=== PATIENT | male | born 1955 | race Caucasian/White ===

== ENCOUNTER 2024-07-29 08:58 | Inpatient (IN) ==
[2024-07-29 10:32] LABS: BUN Creatinine Ratio 17.5 (10-20); Calcium 9.7 mg/dl (8.6-10.3); Creatinine Clr Calc Pharmacy 28.3 ml/min; Potassium 4.8 mmol/L (3.5-5.1)
[2024-07-29 10:36] LABS: Acanthocytes 1+; Basophils # (auto) 0.05 K/uL (0.00-0.20); Basophils % (auto) 0.9 %; Eosinophils # (auto) 0.07 K/uL (0.00-0.50); Eosinophils % (auto) 1.2 %; Hematocrit (blood only) 36.4 % (42.0-52.0); Hemoglobin 12.7 g/dl (14.0-18.0); Immature Granulocytes # (auto) 0.02 K/uL (0.01-0.20); Immature Granulocytes % (auto) 0.3 %; Lymphocytes # (auto) 1.06 K/uL (1.20-3.40); Lymphocytes % (auto) 18.2 %; Mean Corpuscular Hemoglobin 31.5 pg (25.0-34.0); Mean Corpuscular Hgb Conc 34.9 g/dL (32.0-36.0); Mean Corpuscular Volume 90.3 fL (80.0-100.0); Mean Platelet Volume 9.7 fL (9.4-12.4); Monocytes # (auto) 0.44 K/uL (0.11-0.59); Monocytes % (auto) 7.5 %; Neutrophils % (auto) 71.9 %; Polychromasia 1+; RDW Coefficient of Variation 11.6 % (11.5-14.5); RDW Standard Deviation 37.8 fL (36.4-46.3); Red Blood Count 4.03 M/uL (4.70-6.10); White Blood Count 5.84 K/ul (4.8-10.8)
--- NOTE | 2024-07-29 10:39 | XRay Report ---
XR toe(s) LT min 2V HISTORY: 68 years-old Male Great toe infection COMPARISON: None TECHNIQUE: 2 views of the left great toe FINDINGS: There is extension of the metatarsal phalangeal and flexion of the interphalangeal joints seen within the second through fifth digits. Mild soft tissue swelling of the forefoot with arterial calcificati ons. No acute fracture, dislocation or osseous erosion. IMPRESSION: Soft tissue swelling without acute osseous abnormality. ACT 112: Negative or not required by law. The above report was generated using voice recognition software. It may contain grammatical, syntax o r spelling errors. Electronically signed by: Joseph Young M.D. 07/29/2024 10:38 AM
--- NOTE | 2024-07-29 10:51 | XRay Report ---
XR toe(s) RT min 2V CLINICAL HISTORY: Great toe infection COMPARISON: None FINDINGS: Alignment of the right great toe is anatomic. No bony erosion is present. There is no frac ture. Soft tissue swelling is noted. There are no radiopaque foreign bodies. IMPRESSION: Right great toe soft tissue swelling. No evidence for acute osteomyelitis. No radiopaque foreign bodies. ACT 112: Negative or not required by law. Electronically signed by: Germán Martinez M.D. 07/29/2024 10:49 AM
--- NOTE | 2024-07-29 11:43 | History & Physical Report ---
Date of Service July 29, 2024 Assessment & Plan (1) Cellulitis of toe of left foot: (2) Cellulitis of toe of right foot: (3) DM II (diabetes mellitus, type II), controlled: (4) Hypertension: (5) Hyperlipidemia: (6) GERD (gastroesophageal reflux disease): Plan Cellulitis right toe Cellulitis left toe -Admit patient to [facility] -X-ray reviewed as above showing bilateral great toe soft tissue swelling, no signs of osteomyelitis -Check MRSA swab, check blood culture x 2, continue IV Zosyn and daptomycin(for renal function), can DC dapto if MRSA swab is negative -Wound consult, potential for needs for surgical debridement of left great toe eschar-Will require follow-up once back in long term system -Consider podiatry consultation -Orthotics consult for offloading shoe, appears that current footwear is further affecting the great toe, does not fit him correctly Possible RONNY - Cr. elevated at 2.75, unknown baseline, monitor with am labs - Avoid nephrotoxins and renally reduce medications. DM type II -Check A1c -ISS with Accu-Cheks ACHS -Holding home medications HTN HLD -Continue home antihypertensives and statin therapy Constipation - Cont daily miralax and stool softener Urinary Retention - Bladder scan prn, can consider adding flomax for the patient DVT ppx: teds, scds Lines: PIV x 1 FEN/GI: HH/DM diet CODE: Full code Dispo: From [facility], likely to remain in the hospital x 1-2 days A total of 75 minutes were spent with greater than 50% of that time face to face with the patient, personally reviewing all current laboratories, imaging studies, past medication reconciliation, outpatient chart review, and discussion with specialists to collaborate care for the patient with attending. Please see attending documentation for corrections and/or additions. History of Present Illness Chief Complaint: Toe eschar Primary Care Provider: [facility] This is a 68-year-old male with PMHx of DM type II, HTN, HLD, GERD, depression who presents to the hospital from [facility] as an unassigned admission to our team with complaints of left toe eschar, as well as right toe erythema. Patient states that his toes look normal up until approximately 3 days ago. He had been followed by the [facility] [place] [facility], started on oral Bactrim and took it for 3 days in a row without any improvement.He denies any fever, reports that he is always chilled, or acute pain in his bilateral great toes. He states that he does have history of neuropathy, that it is in the bottoms of his feet bilaterally. Patient states that he was only recently started on additional antihyperglycemic medication, metformin, about 1 week ago. He was evaluated in the [facility] this morning and reportedly physician there wanted further evaluation for podiatry versus surgical debridement here at the hospital. Patient is found to have an elevated creatinine of 2.75/BUN 48 on admission, WBC is negligible at 5.84, afebrile. Imaging great toe x-ray bilaterally negative for osteomyelitis but does show soft tissue swelling. Allergies Allergy/AdvReac Type Severity Reaction Status Date / Time insulin regular Allergy Unknown Unknown Verified 05/19/23 13:46 Home Medications Medication Instructions Recorded Confirmed Type atorvastatin 10 mg tablet 10 mg PO HS 03/27/23 07/29/24 History glipizide 5 mg tablet 5 mg PO BID 03/27/23 07/29/24 History lisinopril 2.5 mg tablet 2.5 mg PO QAM 03/27/23 07/29/24 History sitagliptin phosphate 100 mg 100 mg PO QAM 03/27/23 07/29/24 History tablet (Januvia) atorvastatin 10 mg tablet 10 mg PO HS 07/29/24 07/29/24 History lactulose 10 gram/15 mL oral 15 ml PO DAILY PRN Constipation 07/29/24 07/29/24 History solution loratadine 10 mg tablet 10 mg PO DAILY 07/29/24 07/29/24 History metformin 500 mg tablet 500 mg PO BID 07/29/24 07/29/24 History polyethylene glycol 3350 17 gram 17 g PO DAILY PRN Constipation 07/29/24 07/29/24 History oral powder packet (Miralax) sulfamethoxazole 800 1 tab PO BID 07/29/24 07/29/24 History mg-trimethoprim 160 mg tablet (Bactrim DS) Past Med/Surg History Problem List (Updated 07/29/24 @ 11:41 by Nereida Edmondson PA-C) DM II (diabetes mellitus, type II), controlled Cellulitis of toe of right foot Cellulitis of toe of left foot Medical History Constipation Depression, unspecified Diabetes GERD (gastroesophageal reflux disease) Hyperlipidemia Hypertension [place] History [place] [facility] [place] History Other Family history unobtainable Social History Smoking Status: Never smoker Preferred Language: [place] Islander Communication Ability: Effective Juke Box Mechanic Required: No Beliefs That Will Affect Care: None Current Living Situation: Other Current Living Situation Comment: incarcerated at [facility] Feels Safe at Home: Yes Review of Systems Review of Systems: Constitutional: No fever, sweats, + chills Eyes: No diplopia, no worsening or blurred vision ENT: normal hearing, no trouble swallowing Respiratory: No cough, sputum, dyspnea at rest or on exertion Cardiovascular: No chest pain, tightness or palpitations Abdomen: No pain, nausea, vomiting, diarrhea or constipation Musculoskeletal: No joint pain, calf pain, swelling, + toes as per HPI Neurologic: No weakness, numbness/tingling, or balance problems Psychiatric: No anxiety or depression Skin: No rash or itch, left great toe with blackened eschar over medial aspect of great toe, erythema and edema of the right great toe worse along the medial aspect Physical Exam Physical Exam: General: awake, alert, no apparent distress, elderly white male, thin, BMI 21 Head: Normocephalic, atraumatic ENT: PERRL, EOMI, no pharyngeal exudate, mucous membranes moist Chest: Clear to auscultation, on room air, no adventitious breath sounds Cardiac: Regular rate and rhythm, no murmur, no JVD, normal peripheral pulses, good capillary refill Abdominal: NABS x 4 quadrants, soft, nondistended, nontender to palpation, no rebound or guarding Extremities: Left great toe with black eschar medial aspect, minimal surrounding erythema does not extend past the base of the toe, right great toe erythema, edema, no eschar, minimally open area of skin, erythema does not extend past the base of the toe, no edema in the foot. Otherwise normal inspection, no peripheral edema or erythema, calfs nontender to palpation Psych: Normal mood and affect Neuro: AAO x 3, strength intact bilaterally and rated 5/5, no motor deficits, speech is clear, no peripheral sensory deficits Results & Data Results & Data Vital Signs (Past 12 Hours) Vital Signs Temp Pulse Resp BP BP Pulse Ox O2 Del Method 07/29/24 11:20 16 111/42 L 96 07/29/24 09:04 36.5 C 70 20 123/76 96 Room Air Laboratory Results 07/29/24 07/29/24 09:42 09:34 WBC 5.84 RBC 4.03 L Hgb 12.7 L Hct 36.4 L MCV 90.3 MCH 31.5 MCHC 34.9 RDW Std Deviation 37.8 RDW Coeff of Sparkle 11.6 Plt Count MPV 9.7 Immature Gran % (Auto) 0.3 Neut % (Auto) 71.9 Lymph % (Auto) 18.2 [place] % (Auto) 7.5 Eos % (Auto) 1.2 Baso % (Auto) 0.9 Neut # (Auto) 4.20 Lymph # (Auto) 1.06 L [place] # (Auto) 0.44 Eos # (Auto) 0.07 Baso # (Auto) 0.05 Immature Gran # (Auto) 0.02 Polychromasia 1+ Acanthocytes (Spur) 1+ Sodium 139 Potassium 4.8 Chloride 106 Carbon Dioxide 25 Anion Gap 8 BUN 48 H Creatinine 2.75 H Est Cr Clr Drug Dosing 28.3 eGFR 24.66 BUN/Creatinine Ratio 17.5 Glucose 94 POC Glucose 85 Calcium 9.7 Diagnostic Findings Toe X-Ray 07/29/24 09:55 XR toe(s) LT min 2V HISTORY: 68 years-old Male Great toe infection COMPARISON: None TECHNIQUE: 2 views of the left great toe FINDINGS: There is extension of the metatarsal phalangeal and flexion of the interphalangeal joints seen within the second through fifth digits. Mild soft tissue swelling of the forefoot with arterial calcifications. No acute fracture, dislocation or osseous erosion. IMPRESSION: Soft tissue swelling without acute osseous abnormality. ACT 112: Negative or not required by law. The above report was generated using voice recognition software. It may contain grammatical, syntax or spelling errors. Electronically signed by: Joseph Young M.D. 07/29/2024 10:38 AM Toe X-Ray 07/29/24 09:55 XR toe(s) RT min 2V CLINICAL HISTORY: Great toe infection COMPARISON: None FINDINGS: Alignment of the right great toe is anatomic. No bony erosion is present. There is no fracture. Soft tissue swelling is noted. There are no radiopaque foreign bodies. IMPRESSION: Right great toe soft tissue swelling. No evidence for acute osteomyelitis. No radiopaque foreign bodies. ACT 112: Negative or not required by law. Electronically signed by: Germán Martinez M.D. 07/29/2024 10:49 AM Code Status & VTE Plan Code Status Full code Supervising Physician Co-Signing Physician Notes 68-year-old male with PMH of T2DM, HTN, HLD, GERD, depression presented to the ED from [facility] with complaint of left discharge as well as right toe erythema. Patient reports noticing wound in his great toes in the last 1 to 2 weeks, denies trauma to the area, reports sensation intact, has intact dorsalis pedis pulses bilaterally on exam. Patient reports skin falling off in the left great toe and drainage of liquid/bloody discharge from the right great toe. Denies purulent discharge. Denies fever. Denies sore throat/cough/chest pain. Reports feeling weak. Labs and imaging reviewed. Fairly WNL. X-ray bilateral great toe: No evidence of acute osteomyelitis. Soft tissue swelling noted. Bilateral great toe cellulitis: Continue with Zosyn plus dapto due to renal fxn, podiatry consult, wound care consult. Cr 2.75, unknown baseline, follow labs in AM. No data in [facility] chart review. on Exam: GENERAL: Alert and oriented x3. NAD, on RA. HEENT: No pallor, no icterus. Pupils equal, round and reactive to light. Oral mucosa moist. NECK: No JVD, no neck masses. HEART: S1 and S2 heard. Regular rate and rhythm. No murmur, no gallop. RESPIRATORY SYSTEM: Normal AP diameter. No accessory muscle use. No wheezing, no crackles. ABDOMEN: Soft, bowel sounds present, nontender, no distention. CENTRAL NERVOUS SYSTEM: No facial droop. Speech is clear. Obeys simple commands. Moves extremities. EXTREMITIES: No edema, no erythema seen. Rt great toe: erythema, non tender, fluctuation +, no purulent drainage, erythema tracking to medial margin of forefoot Lt great toe: eschar +, minimal erythema tracking to medial margin of great toe base, non tender. I have seen and examined the patient and have discussed the case with the provider above. I agree with the assessment and plan as stated. Time spent: 30 min
[2024-07-29] MEDS: PIPERACILLIN/TAZOBACTAM 4.5 GM/100 ML BAG IV ONE (11:44)
--- NOTE | 2024-07-29 13:33 | Emergency Department Note ---
Impression & Plan Cellulitis of toe of right foot, DM II (diabetes mellitus, type II), controlled, Cellulitis of toe of left foot, Acute kidney injury ED Provider Note NAME: JENNIFER [id number] THOMAS AGE: 68 SEX: M : 1955 ARRIVES VIA: Walk-In INFORMANT: Patient, ED PROVIDER(S): Yousuf William MD CHIEF COMPLAINT: Bilateral toe infection HPI: This is a 68-year-old male presenting for bilateral toe infection. Patient notes that over the past few days to weeks he has had increasing pain to bilateral toes. He notes a black eschar to the left toe which is present physician said it was "likely necrosis ". Right toe is still painful but has less visible wounds as per patient. He is a diabetic. Otherwise no shortness of breath, fever, chills or pain to the Baresel extremity. ROS: See above HPI for pertinent positives & negatives. A total of 10 systems reviewed and were otherwise negative. PAST MEDICAL HISTORY: See Below PAST SURGICAL HISTORY: See Below FAMILY HISTORY: See Below SOCIAL HISTORY: See Below HOME MEDICATIONS: See Below ALLERGIES: See Below VITALS: See Below PHYSICAL EXAMINATION: General: resting comfortably in no acute distress Head: Normocephalic and atraumatic Eyes: Normal inspection, extraocular muscles intact Ear, nose, throat: Normal external exam Neck: Normal range of motion Respiratory: speaking in full sentences, symmetric chest rise, no respiratory distress Cardiovascular: Regular rate/rhythm, right great toe shows erythema/edema, left great toe shows medial black eschar Neuro: The patient awake and alert, appropriately conversive, symmetric faces, no focal deficits MEDICAL DECISION MAKING: This is a 68-year-old male presenting for bilateral toe infection. Due to black eschar, will get x-ray of bilateral toes. Do have suspicion for cellulitis bilaterally. Low concern for acute osteomyelitis based on wounds. Do have worry about needing wound care on the left great toe due to the black eschar. Will start on IV Zosyn. Patient has been on oral Bactrim without relief of symptoms for the past 3 days. -X-rays of bilateral toes reveal no osseous fracture or dislocation, there is soft tissue swelling bilaterally, as Independently interpreted by me -Patient's blood work is abnormal showing a creatinine of 2.75, clear his previous baseline -Discussed care with Violeta, on-call for [facility] hospitalist service Differential diagnosis: Osteomyelitis, cellulitis, necrotic wound ER treatment provided: See below Independent History obtained from: Intermediate guards Diagnostics interpreted by me: ECG: None Cardiac Monitoring: An order was placed for continuous cardiac monitoring. The monitor shows a rate of 67 with sinus rhythm. Laboratory studies: As stated above and show below. Imaging studies: See below. Past Med/Surg History Problem List (Updated 07/29/24 @ 14:19 by Yousuf William MD) Acute kidney injury (Acute) DM II (diabetes mellitus, type II), controlled (Acute) Cellulitis of toe of right foot (Acute) Cellulitis of toe of left foot (Acute) Medical History Constipation Depression, unspecified Diabetes GERD (gastroesophageal reflux disease) Hyperlipidemia Hypertension Surgical History History of left cataract extraction 03/30/23 @ [facility] [place] Family History Other Family history unobtainable Social History Smoking Status: Never smoker Preferred Language: Hebrew Communication Ability: Effective Claims Account Manager Required: No Beliefs That Will Affect Care: None Current Living Situation: Other Current Living Situation Comment: incarcerated at [facility] Feels Safe at Home: Yes Allergies Allergies Allergy/AdvReac Type Severity Reaction Status Date / Time insulin regular Allergy Unknown Unknown Verified 05/19/23 13:46 Home Meds Home Medications Medication Instructions Recorded Confirmed atorvastatin 10 mg tablet 10 mg PO HS 03/27/23 07/29/24 glipizide 5 mg tablet 5 mg PO BID 03/27/23 07/29/24 lisinopril 2.5 mg tablet 2.5 mg PO QAM 03/27/23 07/29/24 sitagliptin phosphate 100 mg 100 mg PO QAM 03/27/23 07/29/24 tablet (Januvia) atorvastatin 10 mg tablet 10 mg PO HS 07/29/24 07/29/24 lactulose 10 gram/15 mL oral 15 ml PO DAILY PRN Constipation 07/29/24 07/29/24 solution loratadine 10 mg tablet 10 mg PO DAILY 07/29/24 07/29/24 metformin 500 mg tablet 500 mg PO BID 07/29/24 07/29/24 polyethylene glycol 3350 17 gram 17 g PO DAILY PRN Constipation 07/29/24 07/29/24 oral powder packet (Miralax) sulfamethoxazole 800 1 tab PO BID 07/29/24 07/29/24 mg-trimethoprim 160 mg tablet (Bactrim DS) Results & Data (ED) Vital Signs Vital Signs - 24 hr 07/29/24 09:04 07/29/24 11:20 Temperature 36.5 C Temperature Source Temporal Artery Scan Pulse Rate 70 Pulse Rhythm Regular Pulse Rhythm [Radial] Regular Pulse Strength Normal Pulse Strength [Radial] Normal Respiratory Rate 20 16 Respiratory Effort / Characteristics Non-Labored Spontaneous Non-Labored Respiratory Depth Normal Normal Respiratory Pattern Regular Regular Blood Pressure 123/76 Blood Pressure [Right Arm] 111/42 L Blood Pressure Mean 91 Blood Pressure Mean [Right Arm] 65 Blood Pressure Position Sitting Blood Pressure Position [Right Arm] Sitting Pulse Oximetry 96 96 Oxygen Delivery Method Room Air Sepsis Recent Fever Within 48 Hours No Sepsis New/Unexplained Change in Mental Status No Sepsis Action Taken by Nursing No Action Required Laboratory Data 07/29/24 09:34 07/29/24 09:34 Lab Results 07/29/24 07/29/24 07/29/24 Range/Units 09:34 09:42 11:32 WBC 5.84 (4.8-10.8) K/ul RBC 4.03 L (4.70-6.10) M/uL Hgb 12.7 L (14.0-18.0) g/dl Hct 36.4 L (42.0-52.0) % MCV 90.3 (80.0-100.0) fL MCH 31.5 (25.0-34.0) pg MCHC 34.9 (32.0-36.0) g/dL RDW Std Deviation 37.8 (36.4-46.3) fL RDW Coeff of Saprk[place] 11.6 (11.5-14.5) % Plt Count (130-400) K/uL MPV 9.7 (9.4-12.4) fL Immature Gran % (Auto) 0.3 % Neut % (Auto) 71.9 % Lymph % (Auto) 18.2 % [place] % (Auto) 7.5 % Eos % (Auto) 1.2 % Baso % (Auto) 0.9 % Neut # (Auto) 4.20 (1.40-6.50) K/uL Lymph # (Auto) 1.06 L (1.20-3.40) K/uL [place] # (Auto) 0.44 (0.11-0.59) K/uL Eos # (Auto) 0.07 (0.00-0.50) K/uL Baso # (Auto) 0.05 (0.00-0.20) K/uL Immature Gran # (Auto) 0.02 (0.01-0.20) K/uL Polychromasia 1+ Acanthocytes (Spur) 1+ Sodium 139 (136-145) mmol/L Potassium 4.8 (3.5-5.1) mmol/L Chloride 106 (98-107) mmol/L Carbon Dioxide 25 (21-32) mmol/L Anion Gap 8 (3-11) BUN 48 H (6-23) mg/dl Creatinine 2.75 H (0.6-1.4) mg/dl Est Cr Clr Drug Dosing 28.3 ml/min eGFR 24.66 BUN/Creatinine Ratio 17.5 (10-20) Glucose 94 (70-99(Fasting)) mg/dl POC Glucose 85 (70-99) mg/dl Calcium 9.7 (8.6-10.3) mg/dl SARS-CoV-2, RNA, NAAT NEGATIVE (NEGATIVE) Administered Medications Discontinued Medications Piperacillin Sod/Tazobactam Sod (Zosyn) 4.5 gm in 100 mls @ 200 mls/hr IV NOW ONE; Protocol Stop: 07/29/24 12:05 Last Infusion: 07/29/24 13:28 Dose: Infused Documented By: Admin: 07/29/24 11:44 Dose: 200 mls/hr Documented By: [employer] [facility] Data Radiologist's Impression: Toe X-Ray 07/29/24 09:55 XR toe(s) LT min 2V HISTORY: 68 years-old Male Great toe infection COMPARISON: None TECHNIQUE: 2 views of the left great toe FINDINGS: There is extension of the metatarsal phalangeal and flexion of the interphalangeal joints seen within the second through fifth digits. Mild soft tissue swelling of the forefoot with arterial calcifications. No acute fracture, dislocation or osseous erosion. IMPRESSION: Soft tissue swelling without acute osseous abnormality. ACT 112: Negative or not required by law. The above report was generated using voice recognition software. It may contain grammatical, syntax or spelling errors. Electronically signed by: Joseph Young M.D. 07/29/2024 10:38 AM Toe X-Ray 07/29/24 09:55 XR toe(s) RT min 2V CLINICAL HISTORY: Great toe infection COMPARISON: None FINDINGS: Alignment of the right great toe is anatomic. No bony erosion is present. There is no fracture. Soft tissue swelling is noted. There are no radiopaque foreign bodies. IMPRESSION: Right great toe soft tissue swelling. No evidence for acute osteomyelitis. No radiopaque foreign bodies. ACT 112: Negative or not required by law. Electronically signed by: Germán Martinez M.D. 07/29/2024 10:49 AM Discharge Plan Visit Data Chief Complaint: Infection Stated Complaint: BILATERAL GREAT TOE CELLULITIS ED Provider: Yousuf William Discharge Problem: Cellulitis of toe of right foot, DM II (diabetes mellitus, type II), controlled, Cellulitis of toe of left foot, Acute kidney injury
[2024-07-29] MEDS ORDERED: GLUCOSE 40% GEL 15 GM TUBE PO PRN (16:12)
[2024-07-29] MEDS ORDERED: ONDANSETRON INJ 2 MG/ML 2 ML VIAL IV PRN (16:12)
[2024-07-29] MEDS ORDERED: GLUCAGON FOR INJ 1 MG VIAL SQ PRN (16:12)
[2024-07-29] MEDS ORDERED: ACETAMINOPHEN 325 MG TAB PO PRN (16:12)
[2024-07-29] MEDS ORDERED: GLUCOSE 10 TAB/TUBE PO PRN (16:12)
[2024-07-29] MEDS ORDERED: DEXTROSE 50% 50 ML SYRINGE IV PRN (16:12)
[2024-07-29] MEDS: INSULIN ASPART PER UNIT CHARGE SC SCH (17:14)
[2024-07-29] MEDS: DAPTOmycin 300 MG in SYRINGE 0 ML IV SCH (18:06)
[2024-07-30 07:31] LABS: Hematocrit (blood only) 35.1 % (42.0-52.0); Hemoglobin 12.4 g/dl (14.0-18.0); Mean Corpuscular Hemoglobin 31.3 pg (25.0-34.0); Mean Corpuscular Hgb Conc 35.3 g/dL (32.0-36.0); Mean Corpuscular Volume 88.6 fL (80.0-100.0); Mean Platelet Volume 9.3 fL (9.4-12.4); Platelet Count 148 K/uL (130-400); RDW Coefficient of Variation 11.5 % (11.5-14.5); RDW Standard Deviation 36.8 fL (36.4-46.3); Red Blood Count 3.96 M/uL (4.70-6.10); White Blood Count 5.34 K/ul (4.8-10.8)
[2024-07-30 07:34] LABS: Estimated Average Glucose 174 mg/dl; Hemoglobin A1C 7.7 % (4.5-5.6)
[2024-07-30 07:38] LABS: BUN Creatinine Ratio 16.7 (10-20); Calcium 9.1 mg/dl (8.6-10.3); Creatinine Clr Calc Pharmacy 27.4 ml/min; Potassium 4.6 mmol/L (3.5-5.1)
--- NOTE | 2024-07-30 15:10 | Hospitalist Progress Note ---
Date of Service July 30, 2024 Assessment & Plan (1) Cellulitis of toe of left foot: (2) Cellulitis of toe of right foot: (3) DM II (diabetes mellitus, type II), controlled: (4) Hypertension: (5) Hyperlipidemia: (6) GERD (gastroesophageal reflux disease): Plan Cellulitis right toe Cellulitis left toe -X-ray reviewed a thes above showing bilateral great toe soft tissue swelling, no signs of osteomyelitis -Check MRSA swab, check blood culture x 2, continue IV Zosyn and daptomycin(for renal function), can DC dapto if MRSA swab is negative -Wound consult, potential for needs for surgical debridement of left great toe eschar-Will require follow-up once back in correction system -Orthotics consult for offloading shoe, appears that current footwear is further affecting the great toe, does not fit him correctly right great toe wound culture is growing Staph aureus, sensitivities pending -Left great toe wound culture shows pinpoint growth and reintubating MRSA screen has been negative Will consult podiatry and continue current antibiotic and wait for sensitivity RONNY - Cr. elevated at 2.75, unknown baseline, monitor with am labs - Avoid nephrotoxins and renally reduce medications. Creatinine noted to be 2.75 on admission and remains high at 2.82 as of today Will give intravenous fluid and he was advised to drink more fluid Monitor PRP DM type II -Check A1c: 7.7 -ISS with Accu-Cheks ACHS -Holding home medications blood sugar has been running high and will cover with ISS HTN HLD -Continue home antihypertensives and statin therapy Constipation - Cont daily miralax and stool softener Urinary Retention - Bladder scan prn, can consider adding flomax for the patient DVT ppx: teds, scds Lines: PIV x 1 FEN/GI: HH/DM diet CODE: Full code Dispo: From [facility], likely to remain in the hospital x 1-2 days Admission and Anticipated Discharge Date Admission Date: July 29, 2024 Subjective 07/30/2012 The patient was seen and examined in medical floor He has peripheral neuropathy and does not have any sensation in the toes and distal part of the feet His blood sugar has been running very high likely secondary to infection Denies any fever and chills, any nausea or vomiting Review of Systems Review of Systems: All systems reviewed and are unremarkable except as noted below Physical Exam Physical Exam: Lying in bed without any acute distress Constitutional: well developed and well nourished; not ill appearing Eyes: PERRL, conjunctivae normal, anicteric sclerae ENMT: external ear and nose normal, oropharynx normal Neck: trachea midline, no thyromegaly Respiratory: no respiratory distress Auscultation: lungs clear to auscultation bilaterally Cardiovascular: Rate/Rhythm: regular rate and regular rhythm; not tachycardic Heart Sounds: normal S1 and normal S2; no murmur Extremities: no edema Gastrointestinal (Abdomen): Inspection/Auscultation: normal bowel sounds; abdomen not distended Percussion/Palpation: abdomen soft; abdomen nontender Musculoskeletal: No acute arthritis involving any of the joint. Infected great toes on either side with superficial ulceration on the left and dry gangrene tip on the right Neurologic: Decreased sensation distal feet on either side Lymphatic: no cervical or axillary lymphadenopathy Results & Data Results & Data Vital Signs (Past 12 Hours) Vital Signs Temp Pulse Resp BP Pulse Ox O2 Del Method 07/30/24 07:24 36.8 C 64 16 119/64 99 Room Air Laboratory Results Short CBC 07/30/24 Range/Units 06:42 WBC 5.34 (4.8-10.8) K/ul Hgb 12.4 L (14.0-18.0) g/dl Hct 35.1 L (42.0-52.0) % Plt Count 148 (130-400) K/uL BMP 07/30/24 06:42 Sodium 137 Potassium 4.6 Chloride 104 Carbon Dioxide 26 BUN 47 H Creatinine 2.82 H Glucose 195 H Calcium 9.1 Medications Administered Current Inpatient Medications Acetaminophen (Acetaminophen 325 Mg Tab) 650 mg PO Q4H PRN PRN Reason: Moderate Pain (Scale 4, 5, 6) Stop: 08/28/24 16:11 Dextrose (Dextrose 50% 50 Ml Syringe) 25 - 50 ml IV UD PRN; Protocol PRN Reason: Hypoglycemia Protocol Stop: 08/28/24 16:11 Glucagon (Glucagon For Inj 1 Mg Vial) 1 mg SQ UD PRN; Protocol PRN Reason: Hypoglycemia Protocol Stop: 08/28/24 16:11 Glucose (Glucose 40% Gel 15 Gm Tube) 15 - 30 gm PO UD PRN; Protocol PRN Reason: Hypoglycemia Protocol Stop: 08/28/24 16:11 Glucose (Glucose 10 Tab/Tube) 4 - 8 tab PO UD PRN; Protocol PRN Reason: Hypoglycemia Protocol Stop: 08/28/24 16:11 Daptomycin 300 mg/ Syringe 6 mls @ 3 mls/min IV Q48H RIAN; Protocol Stop: 08/05/24 16:59 Last Admin: 07/29/24 18:06 Dose: 3 mls/min Insulin Aspart (Insulin Aspart Per Unit Charge) 0 units SC ACHS RIAN Stop: 08/28/24 16:29 Last Admin: 07/30/24 12:19 Dose: 9 units Miscellaneous (Carbohydrates For Hypoglycemia ) 15 - 30 gm PO UD PRN PRN Reason: Hypoglycemia Protocol Stop: 08/28/24 16:11 Ondansetron HCl (Ondansetron Inj 2 Mg/Ml 2 Ml Vial) 4 mg IV Q4H PRN PRN Reason: Nausea And Vomiting Stop: 08/28/24 16:11 Seizure
[2024-07-30] MEDS: SODIUM CHLORIDE 0.9% 1,000 ML IV SCH (16:12)
[2024-07-30] MEDS: CARBOHYDRATES FOR HYPOGLYCEMIA PO PRN (20:37)
[2024-07-31 06:55] LABS: Basophils # (auto) 0.05 K/uL (0.00-0.20); Basophils % (auto) 1.1 %; Eosinophils # (auto) 0.11 K/uL (0.00-0.50); Eosinophils % (auto) 2.3 %; Hematocrit (blood only) 33.2 % (42.0-52.0); Hemoglobin 11.6 g/dl (14.0-18.0); Immature Granulocytes # (auto) 0.01 K/uL (0.01-0.20); Immature Granulocytes % (auto) 0.2 %; Lymphocytes # (auto) 1.12 K/uL (1.20-3.40); Lymphocytes % (auto) 23.8 %; Mean Corpuscular Hemoglobin 31.5 pg (25.0-34.0); Mean Corpuscular Hgb Conc 34.9 g/dL (32.0-36.0); Mean Corpuscular Volume 90.2 fL (80.0-100.0); Mean Platelet Volume 9.2 fL (9.4-12.4); Monocytes # (auto) 0.41 K/uL (0.11-0.59); Monocytes % (auto) 8.7 %; Neutrophils # (auto) 3.01 K/uL (1.40-6.50); Neutrophils % (auto) 63.9 %; Platelet Count 141 K/uL (130-400); RDW Coefficient of Variation 11.4 % (11.5-14.5); RDW Standard Deviation 37.3 fL (36.4-46.3); Red Blood Count 3.68 M/uL (4.70-6.10); White Blood Count 4.71 K/ul (4.8-10.8)
[2024-07-31 07:20] LABS: BUN Creatinine Ratio 18.1 (10-20); Calcium 8.8 mg/dl (8.6-10.3); Potassium 4.6 mmol/L (3.5-5.1)
[2024-07-31] MEDS: ceFAZolin 2000MG 2,000 MG/15 ML SYR IV SCH (12:19)
--- NOTE | 2024-07-31 17:29 | Hospitalist Progress Note ---
Date of Service July 31, 2024 Assessment & Plan (1) Cellulitis of toe of left foot: (2) Cellulitis of toe of right foot: (3) DM II (diabetes mellitus, type II), controlled: (4) Hypertension: (5) Hyperlipidemia: (6) GERD (gastroesophageal reflux disease): Plan Cellulitis right toe Cellulitis left toe -X-ray reviewed showing bilateral great toe soft tissue swelling, no signs of osteomyelitis -Neg MRSA swab, check blood culture x 2, IV Zosyn and daptomycin de-escalated to Cefazolin IV -Wound consult, potential for needs for surgical debridement of left great toe eschar-Will require follow-up once back in detention system -Orthotics consult for offloading shoe, appears that current footwear is further affecting the great toe, does not fit him correctly right great toe wound culture is growing Staph aureus, MSSA Will consult podiatry and continue current antibiotic RONNY - Cr. improved 2.75---> 2.49, unknown baseline, monitor with am labs - Avoid nephrotoxins and renally reduce medications. Monitor PRP DM type II -A1c: 7.7 -ISS with Accu-Cheks ACHS -Holding home medications blood sugar has been running high and will cover with ISS HTN/HLD -Continue home antihypertensives and statin therapy Constipation - Cont daily miralax and stool softener Urinary Retention - Bladder scan prn, can consider adding flomax for the patient DVT ppx: teds, scds Lines: PIV x 1 FEN/GI: HH/DM diet CODE: Full code Dispo: From [facility], likely to remain in the hospital x 1-2 days A total of 50 minutes spent in the care coordination of this patient. Admission and Anticipated Discharge Date Admission Date: July 29, 2024 Subjective 07/31/2012 The patient was seen and examined at bedside. Correctional officers are present. He has peripheral neuropathy and does not have any sensation in the toes and distal part of the feet His blood sugars have been running very high likely secondary to infection Denies any fever and chills, any nausea or vomiting Review of Systems Review of Systems: As per HPI and all other ROS are negative. Physical Exam Physical Exam: General- adult male seen at bedside. Right ankle cuffed to bed. Head- atraumatic Eyes- PERRL, EOMI, anicteric ENT- oropharynx clear Neck- supple, no JVD, no adenopathy, no thyromegaly; carotids +2/2, no bruits appreciated Lungs- clear to auscultation and percussion Heart- regular rhythm; no murmur, no gallop, no rub appreciated Abdomen- normal bowel sounds, soft, nontender, no masses or hepatosplenomegaly Extremities- no pretibial edema, no calf tenderness; peripheral pulses are poor. Bandaging in place on great toes Neuro- alert, oriented x 3; PERRL, EOMI; no facial palsy; no dysarthria; motor 5/5 bilaterally; Skin- warm & dry Results & Data Results & Data Vital Signs (Past 12 Hours) Vital Signs Temp Pulse Resp BP BP Pulse Ox O2 Del Method 07/31/24 15:57 36.9 C 58 L 16 135/76 98 Room Air 07/31/24 07:34 36.5 C 57 L 16 129/77 98 Room Air Diagnostic Findings Laboratory Results WBC 4.71 K/ul (4.8-10.8) L 07/31/24 06:32 RBC 3.68 M/uL (4.70-6.10) L 07/31/24 06:32 Hgb 11.6 g/dl (14.0-18.0) L 07/31/24 06:32 Hct 33.2 % (42.0-52.0) L 07/31/24 06:32 MCV 90.2 fL (80.0-100.0) 07/31/24 06:32 MCH 31.5 pg (25.0-34.0) 07/31/24 06:32 MCHC 34.9 g/dL (32.0-36.0) 07/31/24 06:32 RDW Std Deviation 37.3 fL (36.4-46.3) 07/31/24 06:32 RDW Coeff of Sparkle 11.4 % (11.5-14.5) L 07/31/24 06:32 Plt Count 141 K/uL (130-400) 07/31/24 06:32 MPV 9.2 fL (9.4-12.4) L 07/31/24 06:32 Immature Gran % (Auto) 0.2 % 07/31/24 06:32 Neut % (Auto) 63.9 % 07/31/24 06:32 Lymph % (Auto) 23.8 % 07/31/24 06:32 Graham % (Auto) 8.7 % 07/31/24 06:32 Eos % (Auto) 2.3 % 07/31/24 06:32 Baso % (Auto) 1.1 % 07/31/24 06:32 Neut # (Auto) 3.01 K/uL (1.40-6.50) 07/31/24 06:32 Lymph # (Auto) 1.12 K/uL (1.20-3.40) L 07/31/24 06:32 Graham # (Auto) 0.41 K/uL (0.11-0.59) 07/31/24 06:32 Eos # (Auto) 0.11 K/uL (0.00-0.50) 07/31/24 06:32 Baso # (Auto) 0.05 K/uL (0.00-0.20) 07/31/24 06:32 Immature Gran # (Auto) 0.01 K/uL (0.01-0.20) 07/31/24 06:32 Polychromasia 1+ 07/29/24 09:34 Acanthocytes (Spur) 1+ 07/29/24 09:34 Sodium 137 mmol/L (136-145) 07/31/24 06:32 Potassium 4.6 mmol/L (3.5-5.1) 07/31/24 06:32 Chloride 107 mmol/L (98-107) 07/31/24 06:32 Carbon Dioxide 25 mmol/L (21-32) 07/31/24 06:32 Anion Gap 5 (3-11) 07/31/24 06:32 BUN 45 mg/dl (6-23) H 07/31/24 06:32 Creatinine 2.49 mg/dl (0.6-1.4) H D 07/31/24 06:32 Est Cr Clr Drug Dosing 31.0 ml/min 07/31/24 06:32 eGFR 27.78 07/31/24 06:32 BUN/Creatinine Ratio 18.1 (10-20) 07/31/24 06:32 Glucose 189 mg/dl (70-99(Fasting)) H 07/31/24 06:32 POC Glucose 78 mg/dl (70-99) 07/31/24 16:39 Estimat Average Glucose 174 mg/dl 07/30/24 06:42 Hemoglobin A1c 7.7 % (4.5-5.6) H 07/30/24 06:42 Calcium 8.8 mg/dl (8.6-10.3) 07/31/24 06:32 Nasal Screen MRSA (PCR) Negative (Negative) 07/29/24 12:18 SARS-CoV-2, RNA, NAAT NEGATIVE (NEGATIVE) 07/29/24 11:32 Impressions Toe X-Ray 07/29/24 09:55 XR toe(s) RT min 2V CLINICAL HISTORY: Great toe infection COMPARISON: None FINDINGS: Alignment of the right great toe is anatomic. No bony erosion is present. There is no fracture. Soft tissue swelling is noted. There are no radiopaque foreign bodies. IMPRESSION: Right great toe soft tissue swelling. No evidence for acute osteomyelitis. No radiopaque foreign bodies. ACT 112: Negative or not required by law. Electronically signed by: Germán Martinez M.D. 07/29/2024 10:49 AM Medications Administered Current Inpatient Medications Acetaminophen (Acetaminophen 325 Mg Tab) 650 mg PO Q4H PRN PRN Reason: Moderate Pain (Scale 4, 5, 6) Stop: 08/28/24 16:11 Dextrose (Dextrose 50% 50 Ml Syringe) 25 - 50 ml IV UD PRN; Protocol PRN Reason: Hypoglycemia Protocol Stop: 08/28/24 16:11 Glucagon (Glucagon For Inj 1 Mg Vial) 1 mg SQ UD PRN; Protocol PRN Reason: Hypoglycemia Protocol Stop: 08/28/24 16:11 Glucose (Glucose 40% Gel 15 Gm Tube) 15 - 30 gm PO UD PRN; Protocol PRN Reason: Hypoglycemia Protocol Stop: 08/28/24 16:11 Glucose (Glucose 10 Tab/Tube) 4 - 8 tab PO UD PRN; Protocol PRN Reason: Hypoglycemia Protocol Stop: 08/28/24 16:11 Cefazolin Sodium (Ancef 2000mg) 2,000 mg in 15 mls @ 3.75 mls/min IV Q12H RIAN; Protocol Stop: 08/05/24 16:59 Last Admin: 07/31/24 12:19 Dose: 3.75 mls/min Insulin Aspart (Insulin Aspart Per Unit Charge) 0 units SC ACHS RIAN Stop: 08/28/24 16:29 Last Admin: 07/31/24 17:18 Dose: 5 units Miscellaneous (Carbohydrates For Hypoglycemia ) 15 - 30 gm PO UD PRN PRN Reason: Hypoglycemia Protocol Stop: 08/28/24 16:11 Last Admin: 07/30/24 20:37 Dose: 15 gm Ondansetron HCl (Ondansetron Inj 2 Mg/Ml 2 Ml Vial) 4 mg IV Q4H PRN PRN Reason: Nausea And Vomiting Stop: 08/28/24 16:11
[2024-08-01] MEDS ORDERED: MELATONIN 3 MG TAB PO PRN (02:34)
[2024-08-01] MEDS: hydrOXYzine HCl 10 MG TAB PO STA (04:44)
[2024-08-01 07:22] LABS: Hematocrit (blood only) 33.8 % (42.0-52.0); Hemoglobin 11.9 g/dl (14.0-18.0); Mean Corpuscular Hemoglobin 31.6 pg (25.0-34.0); Mean Corpuscular Hgb Conc 35.2 g/dL (32.0-36.0); Mean Corpuscular Volume 89.7 fL (80.0-100.0); Mean Platelet Volume 9.2 fL (9.4-12.4); Platelet Count 150 K/uL (130-400); RDW Coefficient of Variation 11.4 % (11.5-14.5); RDW Standard Deviation 36.9 fL (36.4-46.3); Red Blood Count 3.77 M/uL (4.70-6.10); White Blood Count 4.75 K/ul (4.8-10.8)
[2024-08-01 07:33] LABS: BUN Creatinine Ratio 16.8 (10-20); Calcium 9.1 mg/dl (8.6-10.3); Creatinine Clr Calc Pharmacy 34.2 ml/min; Potassium 4.5 mmol/L (3.5-5.1)
[2024-08-01] MEDS ORDERED: hydrOXYzine HCl 25 MG TAB PO PRN (11:58)
[2024-08-01] MEDS: hydrOXYzine HCl 25 MG TAB PO PRN (12:14)
[2024-08-01] MEDS: LACTULOSE SYRUP 30 GM/45 ML UDP PO STA (12:49)
--- NOTE | 2024-08-01 17:43 | Hospitalist Progress Note ---
Date of Service August 01, 2024 Assessment & Plan (1) Cellulitis of toe of left foot: (2) Cellulitis of toe of right foot: (3) DM II (diabetes mellitus, type II), controlled: (4) Hypertension: (5) Hyperlipidemia: (6) GERD (gastroesophageal reflux disease): Plan Cellulitis right toe Cellulitis left toe -X-ray reviewed showing bilateral great toe soft tissue swelling, no signs of osteomyelitis -Neg MRSA swab, check blood culture x 2, IV Zosyn and daptomycin de-escalated to Cefazolin IV -Wound consult, potential for needs for surgical debridement of left great toe eschar-Will require follow-up once back in halfway system -Orthotics consult for offloading shoe, appears that current footwear is further affecting the great toe, does not fit him correctly right great toe wound culture is growing Staph aureus, MSSA Will consult Ortho foot and continue current antibiotic RONNY - Cr. improved 2.75---> 2.49--->2.26, unknown baseline, monitor - Avoid nephrotoxins and renally reduce medications. Monitor PRP DM type II -A1c: 7.7 -ISS with Accu-Cheks ACHS -Holding home medications blood sugar has been running high and will cover with ISS HTN/HLD -Continue home antihypertensives and statin therapy Constipation - Cont daily miralax and stool softener Add Senokot and will give lactulose x 1 today Urinary Retention - Bladder scan prn, can consider adding flomax for the patient DVT ppx: teds, scds Ambien as needed Lines: PIV x 1 FEN/GI: HH/DM diet CODE: Full code Dispo: From [facility], likely to remain in the hospital x 1-2 days A total of 51 minutes spent in the care coordination of this patient. Admission and Anticipated Discharge Date Admission Date: July 29, 2024 Subjective 08/01/2012 The patient was seen and examined at bedside. Correctional officers are present. He has peripheral neuropathy and does not have any sensation in the toes and distal part of the feet Has insomnia. Melatonin does not help He is constipated Podiatry cannot see the patient due to insurance issues. Orthopedics has been consulted Denies any fever and chills, any nausea or vomiting Review of Systems Review of Systems: As per HPI and all other ROS are negative. Physical Exam Physical Exam: General- adult male seen at bedside. Right ankle cuffed to bed. Eyes- PERRL, EOMI, ENT- oropharynx clear Neck- supple, no JVD, no adenopathy, no thyromegaly; carotids Lungs- clear to auscultation and percussion Heart- regular rhythm; no murmur, no gallop, no rub appreciated Abdomen- normal bowel sounds, soft, nontender, no masses or hepatosplenomegaly Extremities- no pretibial edema, no calf tenderness; peripheral pulses are poor. Bandaging in place on great toes Neuro- alert, oriented x 3; PERRL, EOMI; no facial palsy; no dysarthria; motor 5/5 bilaterally; diffuse sensory loss in the lower extremities Skin- warm & dry Results & Data Results & Data Vital Signs (Past 12 Hours) Vital Signs Temp Pulse Resp BP BP Pulse Ox O2 Del Method 08/01/24 14:18 36.8 C 81 16 109/71 98 Room Air 08/01/24 07:13 36.9 C 61 17 145/84 H 99 Room Air Diagnostic Findings Laboratory Results WBC 4.75 K/ul (4.8-10.8) L 08/01/24 06:39 RBC 3.77 M/uL (4.70-6.10) L 08/01/24 06:39 Hgb 11.9 g/dl (14.0-18.0) L 08/01/24 06:39 Hct 33.8 % (42.0-52.0) L 08/01/24 06:39 MCV 89.7 fL (80.0-100.0) 08/01/24 06:39 MCH 31.6 pg (25.0-34.0) 08/01/24 06:39 MCHC 35.2 g/dL (32.0-36.0) 08/01/24 06:39 RDW Std Deviation 36.9 fL (36.4-46.3) 08/01/24 06:39 RDW Coeff of Sparkle 11.4 % (11.5-14.5) L 08/01/24 06:39 Plt Count 150 K/uL (130-400) 08/01/24 06:39 MPV 9.2 fL (9.4-12.4) L 08/01/24 06:39 Immature Gran % (Auto) 0.2 % 07/31/24 06:32 Neut % (Auto) 63.9 % 07/31/24 06:32 Lymph % (Auto) 23.8 % 07/31/24 06:32 Lea % (Auto) 8.7 % 07/31/24 06:32 Eos % (Auto) 2.3 % 07/31/24 06:32 Baso % (Auto) 1.1 % 07/31/24 06:32 Neut # (Auto) 3.01 K/uL (1.40-6.50) 07/31/24 06:32 Lymph # (Auto) 1.12 K/uL (1.20-3.40) L 07/31/24 06:32 Lea # (Auto) 0.41 K/uL (0.11-0.59) 07/31/24 06:32 Eos # (Auto) 0.11 K/uL (0.00-0.50) 07/31/24 06:32 Baso # (Auto) 0.05 K/uL (0.00-0.20) 07/31/24 06:32 Immature Gran # (Auto) 0.01 K/uL (0.01-0.20) 07/31/24 06:32 Polychromasia 1+ 07/29/24 09:34 Acanthocytes (Spur) 1+ 07/29/24 09:34 Sodium 136 mmol/L (136-145) 08/01/24 06:39 Potassium 4.5 mmol/L (3.5-5.1) 08/01/24 06:39 Chloride 106 mmol/L (98-107) 08/01/24 06:39 Carbon Dioxide 24 mmol/L (21-32) 08/01/24 06:39 Anion Gap 6 (3-11) 08/01/24 06:39 BUN 38 mg/dl (6-23) H 08/01/24 06:39 Creatinine 2.26 mg/dl (0.6-1.4) H 08/01/24 06:39 Est Cr Clr Drug Dosing 34.2 ml/min 08/01/24 06:39 eGFR 31.20 08/01/24 06:39 BUN/Creatinine Ratio 16.8 (10-20) 08/01/24 06:39 Glucose 185 mg/dl (70-99(Fasting)) H 08/01/24 06:39 POC Glucose 132 mg/dl (70-99) H 08/01/24 16:30 Estimat Average Glucose 174 mg/dl 07/30/24 06:42 Hemoglobin A1c 7.7 % (4.5-5.6) H 07/30/24 06:42 Calcium 9.1 mg/dl (8.6-10.3) 08/01/24 06:39 Nasal Screen MRSA (PCR) Negative (Negative) 07/29/24 12:18 SARS-CoV-2, RNA, NAAT NEGATIVE (NEGATIVE) 07/29/24 11:32 Impressions Toe X-Ray 07/29/24 09:55 XR toe(s) RT min 2V CLINICAL HISTORY: Great toe infection COMPARISON: None FINDINGS: Alignment of the right great toe is anatomic. No bony erosion is p resent. There is no fracture. Soft tissue swelling is noted. There are no radiopaque foreign bodies. IMPRESSION: Right great toe soft tissue swelling. No evidence for acute osteomyelitis. No radiopaque foreign bodies. ACT 112: Negative or not required by law. Electronically signed by: Germán Martinez M.D. 07/29/2024 10:49 AM Medications Administered Current Inpatient Medications Acetaminophen (Acetaminophen 325 Mg Tab) 650 mg PO Q4H PRN PRN Reason: Moderate Pain (Scale 4, 5, 6) Stop: 08/28/24 16:11 Dextrose (Dextrose 50% 50 Ml Syringe) 25 - 50 ml IV UD PRN; Protocol PRN Reason: Hypoglycemia Protocol Stop: 08/28/24 16:11 Glucagon (Glucagon For Inj 1 Mg Vial) 1 mg SQ UD PRN; Protocol PRN Reason: Hypoglycemia Protocol Stop: 08/28/24 16:11 Glucose (Glucose 40% Gel 15 Gm Tube) 15 - 30 gm PO UD PRN; Protocol PRN Reason: Hypoglycemia Protocol Stop: 08/28/24 16:11 Glucose (Glucose 10 Tab/Tube) 4 - 8 tab PO UD PRN; Protocol PRN Reason: Hypoglycemia Protocol Stop: 08/28/24 16:11 Hydroxyzine HCl (Hydroxyzine Hcl 25 Mg Tab) 25 mg PO TID PRN PRN Reason: Anxiety/Agitation Stop: 08/31/24 11:57 Last Admin: 08/01/24 12:14 Dose: 25 mg Cefazolin Sodium (Ancef 2000mg) 2,000 mg in 15 mls @ 3.75 mls/min IV Q12H [facility]; Protocol Stop: 08/05/24 16:59 Last Admin: 08/01/24 12:14 Dose: 3.75 mls/min Insulin Aspart (Insulin Aspart Per Unit Charge) 0 units SC ACHS [facility] Stop: 08/28/24 16:29 Last Admin: 08/01/24 17:07 Dose: 5 units Miscellaneous (Carbohydrates For Hypoglycemia ) 15 - 30 gm PO UD PRN PRN Reason: Hypoglycemia Protocol Stop: 08/28/24 16:11 Last Admin: 07/30/24 20:37 Dose: 15 gm Ondansetron HCl (Ondansetron Inj 2 Mg/Ml 2 Ml Vial) 4 mg IV Q4H PRN PRN Reason: Nausea And Vomiting Stop: 08/28/24 16:11 Senna/Docusate Sodium (Docusate Sodium/Senna 50/8.6mg Tab) 1 tab PO QAM [facility] Stop: 09/01/24 08:59 Zolpidem Tartrate (Zolpidem Tartrate 5 Mg Tab) 10 mg PO HS PRN PRN Reason: Sleep Stop: 08/31/24 11:58
--- NOTE | 2024-08-01 19:29 | Orthopedic Consultation ---
Date of Consultation August 01, 2024 Assessment & Plan (1) DM II (diabetes mellitus, type II), controlled: (2) Cellulitis of toe of right foot: (3) Cellulitis of toe of left foot: (4) Diabetic foot ulcer: Plan This is a 68-year-old gentleman who is an inmate at [facility] locally who was brought to the hospital 3 days ago for evaluation of his bilateral great toes. Reportedly, podiatry has been consulted multiple times but was unable to see the patient, as such orthopedics was then consulted today. On my evaluation, the patient appears well. Vital signs demonstrate that he is afebrile. He does not have an elevated white count. No ESR or CRP has been acacia wn, but my suspicion for osteomyelitis is quite low given nonconcerning x-ray findings as well as very superficial nature of his toe wounds. Considering the patient is not floridly septic, does not appear significantly ill from his wounds, I do not believe any urgent debridement is necessary. I do think that the patient would stand to benefit from follow-up as an outpatient, and I also believe that he would do well to see the [facility] diabetic foot clinic as his wounds seem to be directly related to his underlying diabetes diagnosis. While I do think that the patient is at a significant risk of requiring amputation, I do not think that we have reached that requirement at this time. I recommend continued wound care as previously described in the patient's chart and I recommend that he wear shoes that do not cause undue pressure in this location at his toes or in any other location on his feet. I did reiterate to the patient that it is important that he check his feet daily and monitor for worsening. He should have close outpatient follow-up to ensure that his wounds progress towards healing, if not surgical intervention may be warranted. History of Present Illness Reason for Consultation: Bilateral great toe ulcers Requesting Physician: Dr Anglin Attending Physician: Diomedes Anglin DO History of Present Illness This is a 68-year-old male with PMHx of DM type II, HTN, HLD, GERD, depression who presents to the hospital from [facility]. initially presented to the hospital on 07/29/2024 with bilateral great toe issues. There is an eschar on the left great toe and erythema about the right great toe. Per the patient, his toes were normal until the week before he presented. [facility]. He notes that he has a history of neuropathy and diabetes and states that he does not do a great job watching his feet. He has never followed with a separating machine operator as an outpatient. Per chart review and discussion with nursing staff, reportedly podiatry (at least 2 different podiatrists) have been consulted on this patient over the last 2 days but refused to see the patient for unknown reasons. As such, I was consulted. On my evaluation, the patient is [id number]. He is lying comfortably in bed. His great toes were dressed by wound care and he states that they are not particularly painful today. 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 He denies fevers and chills. He denies any chest pain or shortness of breath. Allergies Allergy/AdvReac Type Severity Reaction Status Date / Time insulin regular Allergy Unknown Unknown Verified 05/19/23 13:46 Home Medications Medication Instructions Recorded Confirmed Type atorvastatin 10 mg tablet 10 mg PO HS 03/27/23 07/29/24 History glipizide 5 mg tablet 5 mg PO BID 03/27/23 07/29/24 History lisinopril 2.5 mg tablet 2.5 mg PO QAM 03/27/23 07/29/24 History sitagliptin phosphate 100 mg 100 mg PO QAM 03/27/23 07/29/24 History tablet (Januvia) atorvastatin 10 mg tablet 10 mg PO HS 07/29/24 07/29/24 History lactulose 10 gram/15 mL oral 15 ml PO DAILY PRN Constipation 07/29/24 07/29/24 History solution loratadine 10 mg tablet 10 mg PO DAILY 07/29/24 07/29/24 History metformin 500 mg tablet 500 mg PO BID 07/29/24 07/29/24 History polyethylene glycol 3350 17 gram 17 g PO DAILY PRN Constipation 07/29/24 07/29/24 History oral powder packet (Miralax) sulfamethoxazole 800 1 tab PO BID 07/29/24 07/29/24 History mg-trimethoprim 160 mg tablet (Bactrim DS) Patient History Medical History Constipation Depression, unspecified Diabetes GERD (gastroesophageal reflux disease) Hyperlipidemia Hypertension Surgical History [place] [facility] [place] Other Family history unobtainable Social History Smoking Status: Never smoker Hx Alcohol Use: Yes (hx > 30 years ago) Hx Substance Use: No Preferred Language: Kinyarwanda Communication Ability: Effective Copy Center Associate Required: No Beliefs That Will Affect Care: None Current Living Situation: Other Current Living Situation Comment: [facility] Other Information That Helps Us Care for You: No Feels Safe at Home: Yes Safety Concerns: Feels Safe At This Time Assistive Devices: None Review of Systems Review of Systems: Negative unless otherwise stated in HPI Physical Exam Physical Exam: see linked images available in chart. Eschar on left great toe without surrounding erythema or drainage. Nontender to palpation. Eschar appears superficial. Right great toe with mild to moderate swelling noted. No eschar appreciated. Small wound noted dorsomedially without concerning signs for infection Results & Data Vital Signs (Past 12 Hours) Vital Signs Temp Pulse Resp BP Pulse Ox O2 Del Method 08/01/24 14:18 36.8 C 81 16 109/71 98 Room Air
[2024-08-01] MEDS: ZOLPIDEM TARTRATE 5 MG TAB PO PRN (22:22)
[2024-08-02 07:33] LABS: Hematocrit (blood only) 35.6 % (42.0-52.0); Hemoglobin 12.2 g/dl (14.0-18.0); Mean Corpuscular Hgb Conc 34.3 g/dL (32.0-36.0); Mean Corpuscular Volume 90.4 fL (80.0-100.0); Mean Platelet Volume 9.3 fL (9.4-12.4); Platelet Count 152 K/uL (130-400); RDW Coefficient of Variation 11.7 % (11.5-14.5); RDW Standard Deviation 38.5 fL (36.4-46.3); Red Blood Count 3.94 M/uL (4.70-6.10); White Blood Count 5.69 K/ul (4.8-10.8)
[2024-08-02 07:39] LABS: Calcium 9.1 mg/dl (8.6-10.3); Creatinine Clr Calc Pharmacy 33.8 ml/min; Potassium 4.9 mmol/L (3.5-5.1)
[2024-08-02] MEDS: DOCUSATE SODIUM/SENNA 50/8.6MG TAB PO SCH (08:35)
--- NOTE | 2024-08-02 17:24 | Hospitalist Progress Note ---
Date of Service August 02, 2024 Assessment & Plan (1) Cellulitis of toe of left foot: (2) Cellulitis of toe of right foot: (3) DM II (diabetes mellitus, type II), controlled: (4) Hypertension: (5) Hyperlipidemia: (6) GERD (gastroesophageal reflux disease): Plan Cellulitis right toe Cellulitis left toe -X-ray reviewed showing bilateral great toe soft tissue swelling, no signs of osteomyelitis -Neg MRSA swab, check blood culture x 2, IV Zosyn and daptomycin de-escalated to Cefazolin IV -Wound consult, potential for needs for surgical debridement of left great toe eschar-Will require follow-up once back in [facility] system -Orthotics consult for offloading shoe, appears that current footwear is further affecting the great toe, does not fit him correctly right great toe wound culture is growing Staph aureus, MSSA Consulted Ortho foot and continue current antibiotic -Consult ID for antibiotic recommendations RONNY - Cr. improved 2.75---> 2.49--->2.26---> 2.29, unknown baseline, monitor - Avoid nephrotoxins and renally reduce medications. Monitor PRP DM type II -A1c: 7.7 -ISS with Accu-Cheks ACHS -Holding home medications blood sugar has been running high and will cover with ISS HTN/HLD -Continue home antihypertensives and statin therapy Constipation - Cont daily miralax and stool softener Add Senokot and gave lactulose yesterday Urinary Retention - Bladder scan prn, can consider adding flomax for the patient DVT ppx: teds, scds Ambien as needed Lines: PIV x 1 FEN/GI: HH/DM diet CODE: Full code Dispo: From [facility], likely to remain in the hospital x 1-2 days Admission and Anticipated Discharge Date Admission Date: July 29, 2024 Subjective 08/02/2012 The patient was seen and examined at bedside. Correctional officers are again present. Slept better last night. Discussed case with orthopedic surgery. No urgent need for debridement. Infectious diseases been consulted for antibiotic recommendations. Denies any fever and chills, any nausea or vomiting Review of Systems Review of Systems: As per HPI and all other ROS are negative. Physical Exam Physical Exam: General- adult male seen at bedside. Right ankle cuffed to bed. Eyes- PERRL, EOMI, Lungs- clear to auscultation and percussion Heart- regular rhythm; no murmur, no gallop, no rub appreciated Extremities- no pretibial edema, no calf tenderness; peripheral pulses are poor. Bandaging in place on great toes Neuro- alert, oriented x 3; PERRL, EOMI; Skin- warm & dry Results & Data Results & Data Vital Signs (Past 12 Hours) Vital Signs Temp Pulse Resp BP Pulse Ox O2 Del Method 08/02/24 14:51 36.9 C 62 16 130/79 99 Room Air 08/02/24 07:09 36.8 C 63 16 144/82 H 95 Room Air Laboratory Results Laboratory Results WBC 5.69 K/ul (4.8-10.8) 08/02/24 06:52 RBC 3.94 M/uL (4.70-6.10) L 08/02/24 06:52 Hgb 12.2 g/dl (14.0-18.0) L 08/02/24 06:52 Hct 35.6 % (42.0-52.0) L 08/02/24 06:52 MCV 90.4 fL (80.0-100.0) 08/02/24 06:52 MCH 31.0 pg (25.0-34.0) 08/02/24 06:52 MCHC 34.3 g/dL (32.0-36.0) 08/02/24 06:52 RDW Std Deviation 38.5 fL (36.4-46.3) 08/02/24 06:52 RDW Coeff of Sparkle 11.7 % (11.5-14.5) 08/02/24 06:52 Plt Count 152 K/uL (130-400) 08/02/24 06:52 MPV 9.3 fL (9.4-12.4) L 08/02/24 06:52 Immature Gran % (Auto) 0.2 % 07/31/24 06:32 Neut % (Auto) 63.9 % 07/31/24 06:32 Lymph % (Auto) 23.8 % 07/31/24 06:32 Simpson % (Auto) 8.7 % 07/31/24 06:32 Eos % (Auto) 2.3 % 07/31/24 06:32 Baso % (Auto) 1.1 % 07/31/24 06:32 Neut # (Auto) 3.01 K/uL (1.40-6.50) 07/31/24 06:32 Lymph # (Auto) 1.12 K/uL (1.20-3.40) L 07/31/24 06:32 Simpson # (Auto) 0.41 K/uL (0.11-0.59) 07/31/24 06:32 Eos # (Auto) 0.11 K/uL (0.00-0.50) 07/31/24 06:32 Baso # (Auto) 0.05 K/uL (0.00-0.20) 07/31/24 06:32 Immature Gran # (Auto) 0.01 K/uL (0.01-0.20) 07/31/24 06:32 Polychromasia 1+ 07/29/24 09:34 Acanthocytes (Spur) 1+ 07/29/24 09:34 Sodium 137 mmol/L (136-145) 08/02/24 06:52 Potassium 4.9 mmol/L (3.5-5.1) 08/02/24 06:52 Chloride 108 mmol/L (98-107) H 08/02/24 06:52 Carbon Dioxide 24 mmol/L (21-32) 08/02/24 06:52 Anion Gap 5 (3-11) 08/02/24 06:52 BUN 39 mg/dl (6-23) H 08/02/24 06:52 Creatinine 2.29 mg/dl (0.6-1.4) H 08/02/24 06:52 Est Cr Clr Drug Dosing 33.8 ml/min 08/02/24 06:52 eGFR 30.71 08/02/24 06:52 BUN/Creatinine Ratio 17.0 (10-20) 08/02/24 06:52 Glucose 192 mg/dl (70-99(Fasting)) H 08/02/24 06:52 POC Glucose 121 mg/dl (70-99) H 08/02/24 16:36 Estimat Average Glucose 174 mg/dl 07/30/24 06:42 Hemoglobin A1c 7.7 % (4.5-5.6) H 07/30/24 06:42 Calcium 9.1 mg/dl (8.6-10.3) 08/02/24 06:52 Nasal Screen MRSA (PCR) Negative (Negative) 07/29/24 12:18 SARS-CoV-2, RNA, NAAT NEGATIVE (NEGATIVE) 07/29/24 11:32 Impressions Toe X-Ray 07/29/24 09:55 XR toe(s) RT min 2V CLINICAL HISTORY: Great toe infection COMPARISON: None FINDINGS: Alignment of the right great toe is anatomic. No bony erosion is present. There is no fracture. Soft tissue swelling is noted. There are no radiopaque foreign bodies. IMPRESSION: Right great toe soft tissue swelling. No evidence for acute os teomyelitis. No radiopaque foreign bodies. ACT 112: Negative or not required by law. Electronically signed by: Germán Martinez M.D. 07/29/2024 10:49 AM Medications Administered Current Inpatient Medications Acetaminophen (Acetaminophen 325 Mg Tab) 650 mg PO Q4H PRN PRN Reason: Moderate Pain (Scale 4, 5, 6) Stop: 08/28/24 16:11 Dextrose (Dextrose 50% 50 Ml Syringe) 25 - 50 ml IV UD PRN; Protocol PRN Reason: Hypoglycemia Protocol Stop: 08/28/24 16:11 Glucagon (Glucagon For Inj 1 Mg Vial) 1 mg SQ UD PRN; Protocol PRN Reason: Hypoglycemia Protocol Stop: 08/28/24 16:11 Glucose (Glucose 40% Gel 15 Gm Tube) 15 - 30 gm PO UD PRN; Protocol PRN Reason: Hypoglycemia Protocol Stop: 08/28/24 16:11 Glucose (Glucose 10 Tab/Tube) 4 - 8 tab PO UD PRN; Protocol PRN Reason: Hypoglycemia Protocol Stop: 08/28/24 16:11 Hydroxyzine HCl (Hydroxyzine Hcl 25 Mg Tab) 25 mg PO TID PRN PRN Reason: Anxiety/Agitation Stop: 08/31/24 11:57 Last Admin: 08/01/24 22:22 Dose: 25 mg Cefazolin Sodium (Ancef 2000mg) 2,000 mg in 15 mls @ 3.75 mls/min IV Q12H RIAN; Protocol Stop: 08/05/24 16:59 Last Admin: 08/02/24 12:59 Dose: 3.75 mls/min Insulin Aspart (Insulin Aspart Per Unit Charge) 0 units SC ACHS RIAN Stop: 08/28/24 16:29 Last Admin: 08/02/24 12:54 Dose: 7 units Miscellaneous (Carbohydrates For Hypoglycemia ) 15 - 30 gm PO UD PRN PRN Reason: Hypoglycemia Protocol Stop: 08/28/24 16:11 Last Admin: 07/30/24 20:37 Dose: 15 gm Ondansetron HCl (Ondansetron Inj 2 Mg/Ml 2 Ml Vial) 4 mg IV Q4H PRN PRN Reason: Nausea And Vomiting Stop: 08/28/24 16:11 Senna/Docusate Sodium (Docusate Sodium/Senna 50/8.6mg Tab) 1 tab PO QAM RIAN Stop: 09/01/24 08:59 Last Admin: 08/02/24 08:35 Dose: 1 tab Zolpidem Tartrate (Zolpidem Tartrate 5 Mg Tab) 10 mg PO HS PRN PRN Reason: Sleep Stop: 08/31/24 11:58 Last Admin: 08/01/24 22:22 Dose: 10 mg
[2024-08-03 07:26] LABS: Hematocrit (blood only) 34.8 % (42.0-52.0); Hemoglobin 12.1 g/dl (14.0-18.0); Mean Corpuscular Hemoglobin 31.2 pg (25.0-34.0); Mean Corpuscular Hgb Conc 34.8 g/dL (32.0-36.0); Mean Corpuscular Volume 89.7 fL (80.0-100.0); Mean Platelet Volume 9.1 fL (9.4-12.4); Platelet Count 148 K/uL (130-400); RDW Coefficient of Variation 11.6 % (11.5-14.5); RDW Standard Deviation 37.2 fL (36.4-46.3); Red Blood Count 3.88 M/uL (4.70-6.10); White Blood Count 4.41 K/ul (4.8-10.8)
[2024-08-03 07:42] LABS: BUN Creatinine Ratio 17.9 (10-20); Calcium 9.1 mg/dl (8.6-10.3); Creatinine Clr Calc Pharmacy 37.3 ml/min; Potassium 4.3 mmol/L (3.5-5.1)
[2024-08-03] MEDS ORDERED: PHARMACY GLYCEMIC MGMT CONSULT PRN (12:32)
[2024-08-03] MEDS ORDERED: LANTUS PER UNIT CHARGE SC ONE (13:15)
--- NOTE | 2024-08-03 13:19 | Pharmacy Report ---
Pharmacy Glycemic Short Note 2 - Date of Service August 03, 2024 - Glycemic Short BSG Results (Last 24 hours): 08/02/24 08/02/24 08/03/24 16:36 20:51 06:48 Glucose 175 H POC Glucose 121 H 281 H 08/03/24 08/03/24 08/03/24 07:45 11:41 11:41 Glucose POC Glucose 172 H 311 H* 320 H* OUTPATIENT ANTIDIABETIC REGIMEN: * Metformin 500 mg PO BIDM * Glipizide 5 mg PO BIDM * Sitagliptin 100 mg PO daily HbA1c: 7.7% (07/30/24) ASSESSMENT: * DP is a 68 year old male admitted on 07/29/24 w/ bilateral great toe cellulitis * Pharmacy consulted for glycemic management on 08/03 due to blood sugar lability * Patient has only been on SC bolus insulin thus far this admission w/ hypoglycemia noted in the evening on 07/29 and 07/30 * Correction factor loosened significantly in response to this * No consistent blood sugar trend throughout the day, but fasting blood sugar has been elevated since time of admission * Despite blood sugar of 320 mg/dL, will hold off on bolus changes today due to prior lows and due to initiation of basal today PLAN FOR INPATIENT GLYCEMIC CONTROL: * Hold outpatient oral diabetes medications * Basal insulin * Lantus 10 units SC x 1 now * Reassess in AM * Bolus insulin * NovoLog per scale ACHS or Q6hrs while NPO * Goal Range: Low 120 mg/dL - High 160 mg/dL * Correction Factor: 50 mg/dL/unit * Nutritional / Prandial insulin per carb ratio of 1 unit per 8 grams CHO consumed
[2024-08-03] MEDS: LANTUS PER UNIT CHARGE SC ONE (13:47)
--- NOTE | 2024-08-03 16:33 | Hospitalist Progress Note ---
Date of Service August 03, 2024 Assessment & Plan (1) Cellulitis of toe of left foot: (2) Cellulitis of toe of right foot: (3) DM II (diabetes mellitus, type II), controlled: (4) Hypertension: (5) Hyperlipidemia: (6) GERD (gastroesophageal reflux disease): Plan Cellulitis right toe Cellulitis left toe -X-ray reviewed showing bilateral great toe soft tissue swelling, no signs of osteomyelitis -Neg MRSA swab, check blood culture x 2, IV Zosyn and daptomycin de-escalated to Cefazolin IV 07/31 -Wound consult, potential for needs for surgical debridement of left great toe eschar-Will require follow-up once back in assisted system -Orthotics consult for offloading shoe, appears that current footwear is further affecting the great toe, does not fit him correctly right great toe wound culture is growing Staph aureus, MSSA Consulted Ortho foot and continue current antibiotic -Consult ID for antibiotic recommendations, await eval. RONNY - Cr. improved 2.75---> 2.49--->2.26---> 2.29, unknown baseline, monitor - Avoid nephrotoxins and renally reduce medications. Monitor PRP DM type II -A1c: 7.7. Pt reports he is on glipizide, januvia, metformin. -ISS with Accu-Cheks ACHS -Holding home medications blood sugar has been running high and will cover with ISS -Pt reports he was on statin but had doctor discontinue it due to side effects but couldn't elaborate what side effects he had. He is not open to reinitiating statin. HTN/HLD: Pt reports he has been hypotensive on BP meds and his lisinopril has been discontinued. Pt doesn't want statin. Constipation: Cont daily miralax and stool softener. c/w bowel regimen. Urinary Retention: Bladder scan prn, can consider adding flomax for the patient if symptoms continue. DVT ppx: teds, scds CODE: Full code Dispo: From [facility], likely to remain in the hospital until ID eval. Admission and Anticipated Discharge Date Admission Date: July 29, 2024 Subjective Patient was seen and examined at bedside. Patient was lying in bed, on room air, NAD, resting comfortably. Correctional officers present at bedside. Patient reports feeling better, denies fever and chills, denies nausea or vomiting. Patient reports eating okay and moving bowels okay. Physical Exam Physical Exam: General- adult male seen at bedside. Right ankle cuffed to bed. Eyes- PERRL, EOMI, Lungs- clear to auscultation and percussion Heart- regular rhythm; no murmur, no gallop, no rub appreciated Extremities- no pretibial edema, no calf tenderness; peripheral pulses are poor. Bandaging in place on great toes b/l. Neuro- alert, oriented x 3; PERRL, EOMI; Skin- warm & dry Results & Data Results & Data Vital Signs (Past 12 Hours) Vital Signs Temp Pulse Resp BP Pulse Ox O2 Del Method 08/03/24 15:07 36.7 C 66 18 125/76 98 Room Air 08/03/24 07:03 36.4 C L 66 16 127/78 98 Room Air
[2024-08-04 06:21] LABS: Hematocrit (blood only) 35.4 % (42.0-52.0); Hemoglobin 12.1 g/dl (14.0-18.0); Mean Corpuscular Hemoglobin 30.6 pg (25.0-34.0); Mean Corpuscular Hgb Conc 34.2 g/dL (32.0-36.0); Mean Corpuscular Volume 89.4 fL (80.0-100.0); Platelet Count 159 K/uL (130-400); RDW Coefficient of Variation 11.6 % (11.5-14.5); RDW Standard Deviation 37.3 fL (36.4-46.3); Red Blood Count 3.96 M/uL (4.70-6.10); White Blood Count 4.59 K/ul (4.8-10.8)
[2024-08-04 06:34] LABS: BUN Creatinine Ratio 18.7 (10-20); Calcium 9.3 mg/dl (8.6-10.3); Creatinine Clr Calc Pharmacy 36.1 ml/min; Phosphorus 3.5 mg/dl (2.5-4.9); Potassium 3.9 mmol/L (3.5-5.1)
[2024-08-04] MEDS: LANTUS PER UNIT CHARGE SC SCH (08:00)
--- NOTE | 2024-08-04 12:10 | Hospitalist Progress Note ---
Date of Service August 04, 2024 Assessment & Plan (1) Cellulitis of toe of left foot: (2) Cellulitis of toe of right foot: (3) DM II (diabetes mellitus, type II), controlled: (4) Hypertension: (5) Hyperlipidemia: (6) GERD (gastroesophageal reflux disease): Plan Cellulitis right toe Cellulitis left toe -X-ray reviewed showing bilateral great toe soft tissue swelling, no signs of osteomyelitis -Neg MRSA swab, check blood culture x 2, IV Zosyn and daptomycin de-escalated to Cefazolin IV 07/31 -Wound consult, potential for needs for surgical debridement of left great toe eschar-Will require follow-up once back in senior care system -Orthotics consult for offloading shoe, appears that current footwear is further affecting the great toe, does not fit him correctly right great toe wound culture is growing Staph aureus, MSSA Consulted Ortho foot and continue current antibiotic -Consult ID for antibiotic recommendations, await eval. RONNY - Cr. improved 2.75---> 2.49--->2.26---> 2.29 --> 2.07 --> 2.14, unknown baseline, monitor - Avoid nephrotoxins and renally reduce medications. Monitor PRP DM type II -A1c: 7.7. Pt reports he is on glipizide, januvia, metformin. -ISS with Accu-Cheks ACHS -Holding home medications blood sugar has been running high and will cover with ISS -Pt reports he was on statin but had doctor discontinue it due to side effects but couldn't elaborate what side effects he had. He is not open to reinitiating statin. HTN/HLD: Pt reports he has been hypotensive on BP meds and his lisinopril has been discontinued. Pt doesn't want statin. Constipation: Cont daily miralax and stool softener. c/w bowel regimen. Urinary Retention: Bladder scan prn, can consider adding flomax for the patient if symptoms continue. DVT ppx: teds, scds CODE: Full code Dispo: From [facility], likely to remain in the hospital until ID eval. Admission and Anticipated Discharge Date Admission Date: July 29, 2024 Subjective Patient was seen and examined at bedside. Patient was lying in bed, on room air, NAD, resting comfortably. Correctional officers present at bedside. Patient reports feeling better, denies fever and chills, denies nausea or vomiting. Patient reports eating okay and moving bowels okay. Physical Exam Physical Exam: General- adult male seen at bedside. Right ankle cuffed to bed. Eyes- PERRL, EOMI, Lungs- clear to auscultation and percussion Heart- regular rhythm; no murmur, no gallop, no rub appreciated Extremities- no pretibial edema, no calf tenderness; peripheral pulses are poor. Bandaging in place on great toe RLE. LLE dressing fell off, ulcer w/ no erythema/warmth noted. Neuro- alert, oriented x 3; PERRL, EOMI; Skin- warm & dry Results & Data Results & Data Vital Signs (Past 12 Hours) Vital Signs Temp Pulse Resp BP Pulse Ox O2 Del Method 08/04/24 08:37 36.6 C 76 16 120/77 98 Room Air
[2024-08-04] MEDS: INSULIN ASPART PER UNIT CHARGE SC SCH (17:09)
[2024-08-04] MEDS: hydrOXYzine HCl 25 MG TAB PO PRN (21:04)
[2024-08-05] MEDS: INSULIN ASPART PER UNIT CHARGE SC SCH (09:44)
--- NOTE | 2024-08-05 10:17 | Pharmacy Report ---
Pharmacy Glycemic Short Note 2 - Date of Service August 05, 2024 - Glycemic Short BSG Results (Last 24 hours): 08/04/24 08/04/24 08/04/24 11:33 16:39 20:49 POC Glucose 232 H 172 H 174 H 08/05/24 07:40 POC Glucose 209 H OUTPATIENT ANTIDIABETIC REGIMEN: * Metformin 500 mg PO BIDM * Glipizide 5 mg PO BIDM * Sitagliptin 100 mg PO daily HbA1c: 7.7% (07/30/24) ASSESSMENT: 08/05 * Patient received 41 units of insulin yesterday, 10 units basal, fasting elevated. * NovoLog parameters changed yesterday for tighter coverage with breakfast, will see if this helps, and if not will increase basal tomorrow. * Awaiting ID consult for DC Planning. 08/03 * DP is a 68 year old male admitted on 07/29/24 w/ bilateral great toe cellulitis * Pharmacy consulted for glycemic management on 08/03 due to blood sugar lability * Patient has only been on SC bolus insulin thus far this admission w/ hypoglycemia noted in the evening on 07/29 and 07/30 * Correction factor loosened significantly in response to this * No consistent blood sugar trend throughout the day, but fasting blood sugar has been elevated since time of admission * Despite blood sugar of 320 mg/dL, will hold off on bolus changes today due to prior lows and due to initiation of basal today PLAN FOR INPATIENT GLYCEMIC CONTROL: * Hold outpatient oral diabetes medications * Basal insulin * Lantus 10 units SC daily * Bolus insulin * NovoLog per scale ACHS or Q6hrs while NPO * Goal Range: Low 120 mg/dL - High 160 mg/dL (higher goal range since pt had episode of hypoglycemia on 07/30) * Correction Factor: 20mg/dL/unit with breakfast, 50 mg/dL/unit all other times * Nutritional / Prandial insulin per carb ratio of 1 unit per 6 grams CHO consumed at breakfast, 1 unit per 8 grams CHO consumed all other times
[2024-08-05 12:54] LABS: Hemoglobin 11.9 g/dl (14.0-18.0); Mean Corpuscular Hemoglobin 31.2 pg (25.0-34.0); Mean Corpuscular Volume 89.2 fL (80.0-100.0); Mean Platelet Volume 9.1 fL (9.4-12.4); Platelet Count 156 K/uL (130-400); RDW Coefficient of Variation 11.6 % (11.5-14.5); RDW Standard Deviation 37.2 fL (36.4-46.3); Red Blood Count 3.81 M/uL (4.70-6.10); White Blood Count 4.81 K/ul (4.8-10.8)
[2024-08-05 13:10] LABS: BUN Creatinine Ratio 16.6 (10-20); Calcium 9.1 mg/dl (8.6-10.3); Creatinine Clr Calc Pharmacy 32.9 ml/min; Potassium 4.4 mmol/L (3.5-5.1)
--- NOTE | 2024-08-05 13:30 | Infectious Disease Consult ---
Date of Service August 05, 2024 Telehealth Information I performed this visit using a real-time telehealth connection between my location and the patients location ([facility]). After connecting through interactive tele-video, patient was identified by name and date of and/or wristband check.Patient (or authorized healthcare livestock sales representative) was informed that this was a telemedicine visit and it was being conducted confidentially over secure lines. My office door was closed and no one else was present in the room with me.Patient (or authorized healthcare livestock sales representative) provided consent to proceed with the visit, expressed an understanding of privacy and security of the telemedicine visit, and gave permission to have a hospital livestock sales representative in the room in order to assist with the visit and to conduct portions of the visit, as needed. I informed the patient (or authorized healthcare livestock sales representative) that I reviewed their record and presented the opportunity for them to ask any questions regarding the visit today. The patient agreed to participate. Assessment & Plan Plan Patient with cellulitis and wound to both great toes who presented from the clinic for further evaluation .X-rays do not reveal any osteomyelitis and superficial wound culture has grown MSSA and he is currently on ancef .I would recommend a MRI to definitively rule out osteomyelitis and continue ancef for now (although that was a superficial culture which is unreliable) .Thank you for allowing us to participate in the care of this patient ID will continue to follow History of Present Illness History of Present Illness 68 y/o M PMHx of DM type II, HTN, HLD, GERD, depression who presented to the hospital from [facility] with complaints of left toe eschar, as well as right toe erythema. Patient states that he observed the change in his toes 3 days ago and he had been followed by the infirmary at [facility] [place] [facility] and had been started on oral Bactrim which he took it for 3 days without any improvement.He denies any fever or acute pain in his bilateral great toes. 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 Patient states that he was only recently started on metformin, about 1 week ago. He was evaluated in the infirmary and a decision was taken to seek further medical evaluation and he was referred to the ER where he was admitted Patient is found to have an elevated creatinine of 2.75/BUN 48 on admission,afebrile. Imaging great toe x-ray bilaterally negative for osteomyelitis but does show soft tissue swelling. Patient was seen by orthopedics and no surgical intervention was deemed necessary .Superficial swab of his toes have grown MSSA and he is on ancef Allergies Allergy/AdvReac Type Severity Reaction Status Date / Time insulin regular Allergy Unknown Unknown Verified 05/19/23 13:46 Home Medications Medication Instructions Recorded Confirmed Type atorvastatin 10 mg tablet 10 mg PO HS 03/27/23 07/29/24 History glipizide 5 mg tablet 5 mg PO BID 03/27/23 07/29/24 History lisinopril 2.5 mg tablet 2.5 mg PO QAM 03/27/23 07/29/24 History sitagliptin phosphate 100 mg 100 mg PO QAM 03/27/23 07/29/24 History tablet (Januvia) atorvastatin 10 mg tablet 10 mg PO HS 07/29/24 07/29/24 History lactulose 10 gram/15 mL oral 15 ml PO DAILY PRN Constipation 07/29/24 07/29/24 History solution loratadine 10 mg tablet 10 mg PO DAILY 07/29/24 07/29/24 History metformin 500 mg tablet 500 mg PO BID 07/29/24 07/29/24 History polyethylene glycol 3350 17 gram 17 g PO DAILY PRN Constipation 07/29/24 07/29/24 History oral powder packet (Miralax) sulfamethoxazole 800 1 tab PO BID 07/29/24 07/29/24 History mg-trimethoprim 160 mg tablet (Bactrim DS) Patient History Medical History Constipation Depression, unspecified Diabetes GERD (gastroesophageal reflux disease) Hyperlipidemia Hypertension Surgical History History of left cataract extraction 03[place]30/23 [place] [facility] [place] Family History Other Family history unobtainable Social History Smoking Status: Never smoker Hx Alcohol Use: Yes (hx > 30 years ago) Hx Substance Use: No Preferred Language: Greenlandic Communication Ability: Effective Shipping Point Inspector Required: No Beliefs That Will Affect Care: None Current Living Situation: Other Current Living Situation Comment: [facility] Other Information That Helps Us Care for You: No Feels Safe at Home: Yes Safety Concerns: Feels Safe At This Time Assistive Devices: None Results & Data Vital Signs (Past 12 Hours) Vital Signs Temp Pulse Resp BP Pulse Ox O2 Del Method 08/05/24 07:12 36.7 C 56 L 20 133/82 99 Room Air Laboratory Results No leukocytosis Diagnostic Findings S aureus RX M.I.C. --- --------- Clindamycin S <=0.25 Daptomycin S <=0.5 Erythromycin S <=0.25 Linezolid S 2 Oxacillin S 0.5 Tetracycline S <=4 Trimeth/Sulfa S <=0.5/9.5 Vancomycin S 1
[2024-08-05] MEDS: LANTUS PER UNIT CHARGE SC ONE (13:37)
--- NOTE | 2024-08-05 16:04 | Hospitalist Progress Note ---
Date of Service August 05, 2024 Assessment & Plan (1) Cellulitis of toe of left foot: (2) Cellulitis of toe of right foot: (3) DM II (diabetes mellitus, type II), controlled: (4) Hypertension: (5) Hyperlipidemia: (6) GERD (gastroesophageal reflux disease): Plan Cellulitis right toe Cellulitis left toe -X-ray reviewed showing bilateral great toe soft tissue swelling, no signs of osteomyelitis -Neg MRSA swab, check blood culture x 2, IV Zosyn and daptomycin de-escalated to Cefazolin IV 07/31 -Wound consult, potential for needs for surgical debridement of left great toe eschar-Will require follow-up once back in senior care system -Orthotics consult for offloading shoe, appears that current footwear is further affecting the great toe, does not fit him correctly right great toe wound culture is growing Staph aureus, MSSA Consulted Ortho foot and continue current antibiotic -Consult ID for antibiotic recommendations, await eval. RONNY - Cr. improved 2.75---> 2.49--->2.26---> 2.29 --> 2.07 --> 2.14--> 2.35, unknown baseline, monitor - Avoid nephrotoxins and renally reduce medications. Monitor PRP DM type II -A1c: 7.7. Pt reports he is on glipizide, januvia, metformin. -ISS with Accu-Cheks ACHS -Holding home medications blood sugar has been running high and will cover with ISS -Pt reports he was on statin but had doctor discontinue it due to side effects but couldn't elaborate what side effects he had. He is not open to reinitiating statin. HTN/HLD: Pt reports he has been hypotensive on BP meds and his lisinopril has been discontinued. Pt doesn't want statin. Constipation: Cont daily miralax and stool softener. c/w bowel regimen. Urinary Retention: Bladder scan prn, can consider adding flomax for the patient if symptoms continue. DVT ppx: teds, scds CODE: Full code Dispo: From [facility], likely to remain in the hospital until ID eval. Admission and Anticipated Discharge Date Admission Date: July 29, 2024 Subjective Patient was seen and examined at bedside. Patient was lying in bed, on room air, NAD, resting comfortably. Correctional officers present at bedside. Patient reports feeling better, denies fever and chills, denies nausea or vomiting. Patient reports eating okay and moving bowels okay. Physical Exam Physical Exam: General- adult male seen at bedside. Right ankle cuffed to bed. Eyes- PERRL, EOMI, Lungs- clear to auscultation and percussion Heart- regular rhythm; no murmur, no gallop, no rub appreciated Extremities- no pretibial edema, no calf tenderness; peripheral pulses are poor. Bandaging in place on great toes b/l LE. Neuro- alert, oriented x 3; PERRL, EOMI; Skin- warm & dry Results & Data Results & Data Vital Signs (Past 12 Hours) Vital Signs Temp Pulse Resp BP Pulse Ox O2 Del Method 08/05/24 14:14 36.7 C 64 18 126/82 97 Room Air 08/05/24 07:12 36.7 C 56 L 20 133/82 99 Room Air
[2024-08-06] MEDS: LANTUS PER UNIT CHARGE SC SCH (09:16)
--- NOTE | 2024-08-06 09:39 | Pharmacy Report ---
Pharmacy Glycemic Short Note 2 - Date of Service August 06, 2024 - Glycemic Short BSG Results (Last 24 hours): 08/05/24 08/05/24 08/05/24 11:39 12:25 16:31 Glucose 190 H POC Glucose 217 H 68 L* 08/05/24 08/05/24 08/05/24 16:32 16:52 20:25 Glucose POC Glucose 67 L* 73 199 H 08/06/24 07:44 Glucose POC Glucose 186 H OUTPATIENT ANTIDIABETIC REGIMEN: * Metformin 500 mg PO BIDM * Glipizide 5 mg PO BIDM * Sitagliptin 100 mg PO daily HbA1c: 7.7% (07/30/24) ASSESSMENT: 08/06 * Patient received 46 units of insulin yesterday, 15 units basal, fasting BG improved. * Patient did have an episode of hypoglycemia prior to dinner yesterday, loosen CF. * Blood sugar still rising from breakfast to lunch, tighten CR at breakfast only. * Remains on IV Cefazolin, ID consult rec MRI, ordered. 08/05 * Patient received 41 units of insulin yesterday, 10 units basal, fasting elevated. * NovoLog parameters changed yesterday for tighter coverage with breakfast, will see if this helps, and if not will increase basal tomorrow. * Awaiting ID consult for DC Planning. 08/03 * DP is a 68 year old male admitted on 07/29/24 w/ bilateral great toe cellulitis * Pharmacy consulted for glycemic management on 08/03 due to blood sugar lability * Patient has only been on SC bolus insulin thus far this admission w/ hypoglycemia noted in the evening on 07/29 and 07/30 * Correction factor loosened significantly in response to this * No consistent blood sugar trend throughout the day, but fasting blood sugar has been elevated since time of admission * Despite blood sugar of 320 mg/dL, will hold off on bolus changes today due to prior lows and due to initiation of basal today PLAN FOR INPATIENT GLYCEMIC CONTROL: * Hold outpatient oral diabetes medications * Basal insulin * Lantus 15 units SC daily * Bolus insulin * NovoLog per scale ACHS or Q6hrs while NPO * Goal Range: Low 120 mg/dL - High 160 mg/dL (higher goal range since pt had episode of hypoglycemia on 07/30 & 08/05) * Correction Factor: 20mg/dL/unit with breakfast, 60 mg/dL/unit all other times * Nutritional / Prandial insulin per carb ratio of 1 unit per 5 grams CHO consumed at breakfast, 1 unit per 8 grams CHO consumed all other times
--- NOTE | 2024-08-06 13:15 | Magnetic Resonance Report ---
MR foot LT w/o con HISTORY: 68 years-old Male ro toe osteomyelitis chronic left foot pain with cellulitis and possible osteomyelitis. COMPARISON: Radiographs 07/29/2024 TECHNIQUE: Multiplanar multisequence MRI of the left foot was obtained without IV contrast. FINDINGS: Mild multifocal osteoarthritis. The imaged tendons and ligaments appear intact as visualized. The dean dy is motion degraded. Intact plantar plates. There is extension of the metatarsal phalangeal with fl exion of the interphalangeal joints. The Lisfranc ligament appears intact. No evidence of Charcot neuropathy. There is diffuse edema of the musculature with atrophy. Mild subcu taneous edema of the forefoot. No drainable fluid collections. Marked marrow edema of the first dista l phalanx with decreased T1 signal and mild cortical irregularity of the distal phalangeal tuft on im age 33 series 8. T1 marrow signal is otherwise preserved. Possible small ulceration of the distal gre at toe. IMPRESSION: 1. Marked marrow edema of the first distal phalanx with probable early acute osteomyelitis of the dis cherrie phalangeal mehnaz. 2. Mild subcutaneous edema of the great toe suggestive of cellulitis. No fluid collections. 3. Chronic denervation changes of the musculature. ACT 112: Negative or not required by law. The above report was generated using voice recognition software. It may contain grammatical, syntax o r spelling errors. Electronically signed by: Joseph Young M.D. 08/06/2024 1:13 PM
--- NOTE | 2024-08-06 14:34 | Magnetic Resonance Report ---
MRI OF THE RIGHT FOREFOOT WITHOUT CONTRAST CLINICAL HISTORY: Right great toe swelling. Cellulitis. Evaluate for osteomyelitis. COMPARISON STUDY: Right great toe radiographs July 29, 2024. TECHNIQUE: Utilizing a 1.5 Alyssa magnet and dedicated coil, multiplanar, multiecho imaging of the rig ht forefoot was performed without intravenous contrast. FINDINGS: Alignment of the right midfoot and forefoot is anatomic. No fractures are present. Tarsomet atarsal joints are intact. Lisfranc ligament is intact. There is focal moderate marrow edema within t he distal tuft of the distal phalanx of the right great toe. Corresponding hypointense T1 signal is b janiya shown on sagittal T1-weighted sequence image 22 of 32. No additional sites of marrow edema are present. No fluid collection is identified. Visualized portions of the flexor extensor tendons are no rmal intact. IMPRESSION: Focal moderate marrow edema within the distal tuft of the distal phalanx of the right gr eat toe with corresponding T1 hypointense signal. This is consistent with a small focus of acute oste omyelitis. ACT 112: Negative or not required by law. Electronically signed by: Germán Martinez M.D. 08/06/2024 2:32 PM
--- NOTE | 2024-08-06 16:43 | Hospitalist Progress Note ---
Date of Service August 06, 2024 Assessment & Plan (1) Cellulitis of toe of left foot: (2) Cellulitis of toe of right foot: (3) DM II (diabetes mellitus, type II), controlled: (4) Hypertension: (5) Hyperlipidemia: (6) GERD (gastroesophageal reflux disease): Plan Cellulitis right toe Cellulitis left toe -X-ray reviewed showing bilateral great toe soft tissue swelling, no signs of osteomyelitis -Neg MRSA swab, check blood culture x 2, IV Zosyn and daptomycin de-escalated to Cefazolin IV 07/31 -Wound consult, potential for needs for surgical debridement of left great toe eschar-Will require follow-up once back in [facility] system -Orthotics consult for offloading shoe, appears that current footwear is further affecting the great toe, does not fit him correctly right great toe wound culture is growing Staph aureus, MSSA Consulted Ortho foot and continue current antibiotic -Consult ID for antibiotic recommendations, recommended MRI, b/l great toe osteomyelitis, reached out to ID w/ results 08/06, await final recs. RONNY - Cr. improved 2.75---> 2.49--->2.26---> 2.29 --> 2.07 --> 2.14--> 2.35, unknown baseline, monitor - Avoid nephrotoxins and renally reduce medications. Monitor PRP DM type II -A1c: 7.7. Pt reports he is on glipizide, januvia, metformin. -ISS with Accu-Cheks ACHS -Holding home medications blood sugar has been running high and will cover with ISS -Pt reports he was on statin but had doctor discontinue it due to side effects but couldn't elaborate what side effects he had. He is not open to reinitiating statin. HTN/HLD: Pt reports he has been hypotensive on BP meds and his lisinopril has been discontinued. Pt doesn't want statin. Constipation: Cont daily miralax and stool softener. c/w bowel regimen. Urinary Retention: Bladder scan prn, can consider adding flomax for the patient if symptoms continue. DVT ppx: teds, scds CODE: Full code Dispo: From [facility], likely to remain in the hospital until final ID recs ID. Admission and Anticipated Discharge Date Admission Date: July 29, 2024 Subjective Patient was seen and examined at bedside. Patient was lying in bed, on room air, NAD, resting comfortably. Correctional officers present at bedside. Patient reports feeling better, denies fever and chills, denies nausea or vomiting. Patient reports eating okay and moving bowels okay. Physical Exam Physical Exam: General- adult male seen at bedside. Right ankle cuffed to bed. Eyes- PERRL, EOMI, Lungs- clear to auscultation and percussion Heart- regular rhythm; no murmur, no gallop, no rub appreciated Extremities- no pretibial edema, no calf tenderness; peripheral pulses are poor. Bandaging in place on great toes b/l LE. Neuro- alert, oriented x 3; PERRL, EOMI; Skin- warm & dry Results & Data Results & Data Vital Signs (Past 12 Hours) Vital Signs Temp Pulse Resp BP Pulse Ox O2 Del Method 08/06/24 14:12 36.4 C L 59 L 18 112/77 98 Room Air 08/06/24 07:21 36.5 C 75 20 131/76 95 Room Air
[2024-08-07 07:09] LABS: Hematocrit (blood only) 33.8 % (42.0-52.0); Hemoglobin 12.1 g/dl (14.0-18.0); Mean Corpuscular Hemoglobin 31.6 pg (25.0-34.0); Mean Corpuscular Hgb Conc 35.8 g/dL (32.0-36.0); Mean Corpuscular Volume 88.3 fL (80.0-100.0); Mean Platelet Volume 9.1 fL (9.4-12.4); Platelet Count 147 K/uL (130-400); RDW Coefficient of Variation 11.5 % (11.5-14.5); RDW Standard Deviation 36.6 fL (36.4-46.3); Red Blood Count 3.83 M/uL (4.70-6.10); White Blood Count 4.45 K/ul (4.8-10.8)
[2024-08-07 07:33] LABS: BUN Creatinine Ratio 19.5 (10-20); Calcium 9.1 mg/dl (8.6-10.3); Creatinine Clr Calc Pharmacy 35.1 ml/min; Magnesium 1.9 mg/dl (1.7-2.4); Phosphorus 3.3 mg/dl (2.5-4.9); Potassium 4.2 mmol/L (3.5-5.1)
[2024-08-07] MEDS: LANTUS PER UNIT CHARGE SC SCH ×2 (09:10→17:29)
--- NOTE | 2024-08-07 10:18 | Pharmacy Report ---
Pharmacy Glycemic Short Note 2 - Date of Service August 07, 2024 - Glycemic Short BSG Results (Last 24 hours): 08/06/24 08/06/24 08/07/24 11:31 20:29 06:34 Glucose 194 H POC Glucose 172 H 102 H 08/07/24 08:08 Glucose POC Glucose 198 H OUTPATIENT ANTIDIABETIC REGIMEN: * Metformin 500 mg PO BIDM * Glipizide 5 mg PO BIDM * Sitagliptin 100 mg PO daily HbA1c: 7.7% (07/30/24) ASSESSMENT: 08/07 * Mauricio received 44 units of insulin yesterday (15 were basal) * Fasting BSG this AM above goal range for the second day, increase basal insulin by 20% * BSGs trended down throughout the day, no changes to Novolog parameters at this time. * Continues on IV cefazolin 08/06 * Patient received 46 units of insulin yesterday, 15 units basal, fasting BG improved. * Patient did have an episode of hypoglycemia prior to dinner yesterday, loosen CF. * Blood sugar still rising from breakfast to lunch, tighten CR at breakfast only. * Remains on IV Cefazolin, ID consult rec MRI, ordered. 08/05 * Patient received 41 units of insulin yesterday, 10 units basal, fasting elevated. * NovoLog parameters changed yesterday for tighter coverage with breakfast, will see if this helps, and if not will increase basal tomorrow. * Awaiting ID consult for DC Planning. 08/03 * DP is a 68 year old male admitted on 07/29/24 w/ bilateral great toe cellulitis * Pharmacy consulted for glycemic management on 08/03 due to blood sugar lability * Patient has only been on SC bolus insulin thus far this admission w/ hypoglycemia noted in the evening on 07/29 and 07/30 * Correction factor loosened significantly in response to this * No consistent blood sugar trend throughout the day, but fasting blood sugar has been elevated since time of admission * Despite blood sugar of 320 mg/dL, will hold off on bolus changes today due to prior lows and due to initiation of basal today PLAN FOR INPATIENT GLYCEMIC CONTROL: * Hold outpatient oral diabetes medications * Basal insulin * Lantus 18 units SC daily * Bolus insulin * NovoLog per scale ACHS or Q6hrs while NPO * Goal Range: Low 120 mg/dL - High 160 mg/dL (higher goal range since pt had episode of hypoglycemia on 07/30 & 08/05) * Correction Factor: 20mg/dL/unit with breakfast, 60 mg/dL/unit all other times * Nutritional / Prandial insulin per carb ratio of 1 unit per 5 grams CHO consumed at breakfast, 1 unit per 8 grams CHO consumed all other times
--- NOTE | 2024-08-07 14:35 | Hospitalist Progress Note ---
Date of Service August 07, 2024 Assessment & Plan (1) Cellulitis of toe of left foot: (2) Cellulitis of toe of right foot: (3) DM II (diabetes mellitus, type II), controlled: (4) Hypertension: (5) Hyperlipidemia: (6) GERD (gastroesophageal reflux disease): Plan Osteomyelitis of bilateral distal phalanx of great toe -X-ray reviewed showing bilateral great toe soft tissue swelling, -Neg MRSA swab, IV Zosyn and daptomycin de-escalated to Cefazolin IV 07/31 -MRI of the bilateral forefoot shows possible osteomyelitis of distal phalanx of right great toe -Reached out to orthopedic regarding MRI finding and possible need for debridement; patient to be evaluated later today or tomorrow a.m. Continue on IV cefazolin RONNY on CKD - Cr. improved 2.75---> 2.49--->2.26---> 2.29 --> 2.07 --> 2.14--> 2.35, unknown baseline, monitor - Avoid nephrotoxins and renally reduce medications. Monitor PRP DM type II -A1c: 7.7. Pt reports he is on glipizide, januvia, metformin. -ISS with Accu-Cheks ACHS -Holding home medications -Patient reports that he does not want to take insulin; education provided. Started on Januvia HTN/HLD: Pt reports he has been hypotensive on BP meds and his lisinopril has been discontinued. Pt doesn't want statin. Constipation: Cont daily miralax and stool softener. c/w bowel regimen. Urinary Retention: Bladder scan prn, can consider adding flomax for the patient if symptoms continue. DVT ppx: heparin CODE: Full code Dispo: From [facility]; awaiting orthopedics input. Please note the above document was generated using voice recognition software. It may contain grammatical, syntax or spelling errors. Any formal questions or concerns about the content, text or information contained within the body of this dictation should be directly addressed to the provider for clarification Admission and Anticipated Discharge Date Admission Date: July 29, 2024 Subjective Patient seen and examined at bedside. He is comfortable; not in distress. Reports that he does not want to take insulin. Pain well-controlled. vital signs are stable Review of Systems Review of Systems: All systems reviewed & are unremarkable except as noted in Subjective Physical Exam Physical Exam: General- adult male seen at bedside. Comfortable; not in distress. Eyes- PERRL, EOMI, Lungs- clear to auscultation and percussion Heart- regular rhythm; no murmur, no gallop, no rub appreciated Extremities- no pretibial edema, no calf tenderness; peripheral pulses palpable . Black eschar present on left great toe; redness/erythema on right great toe. Tenderness present. Neuro- alert, oriented x 3; PERRL, EOMI; Skin- warm & dry Results & Data Results & Data Vital Signs (Past 12 Hours) Vital Signs Temp Pulse Resp BP Pulse Ox O2 Del Method 08/07/24 07:51 36.3 C L 63 16 129/77 96 Room Air
[2024-08-07] MEDS ORDERED: SITagliptin PHOSPHATE 25 MG TAB PO SCH (15:00)
[2024-08-07] MEDS: metFORMIN HCL 500 MG TAB PO SCH (17:29)
--- NOTE | 2024-08-07 20:39 | Orthopedic Progress Note ---
Date of Service August 07, 2024 Assessment & Plan (1) DM II (diabetes mellitus, type II), controlled: (2) Cellulitis of toe of right foot: (3) Cellulitis of toe of left foot: (4) Diabetic foot ulcer: Plan This is a 68-year-old gentleman who is an inmate at [facility] who was brought to the hospital for evaluation of his bilateral great toes. On my evaluation, the patient appears well. Vital signs demonstrate that he is afebrile. He does not have an elevated white count. I have ordered an ESR and CRP. Considering the patient's bilateral foot MRIs have demonstrated osteomyelitis in the distal phalanx bilaterally, I believe that the most definitive management f or him would include bilateral great toe partial amputations. I believe the patient would require resection of the distal phalanx bilaterally and partial resection of the proximal phalanx with anastomosis of the flexor and extensor tendons. I believe that given his poor skin bilaterally and especially the eschar on the left great toe, a simple debridement of the soft tissue was would not entirely eradicate the infection, and the surgical wound would be unlikely to heal without resection to a more proximal level. Given this, I think his best chance at avoiding a higher level of amputation would include the partial resection of bilateral great toes described above. Given the fact the patient is not floridly septic, I have offered to him to perform this for him while he is here in the hospital, but do think that the timing of this is his choice. If the patient opts for non operative management, the patient would require long-term IV antibiotics and this may be impossible for him to complete while he is incarcerated. the patient states he will think about this ovenight and we will discuss again in the morning. He states he is leaning towards surgery. we will tentatively plan to complete this Monday08/09/24. Admission and Anticipated Discharge Date Admission Date: July 29, 2024 Subjective Patient seen and evaluated this evening. He maintains that he does not feel ill. Notes that he had MRIs of his feet completed. Denies fevers, chills, ch est pain, shortness of breath. Review of Systems Review of Systems: Negative unless otherwise stated above Physical Exam Physical Exam: see linked images available in chart. Eschar on left great toe without surrounding erythema or drainage. Nontender to palpation. Right great toe with mild to moderate swelling noted. No eschar appreciated. Small wound noted dorsomedially with some purulent drainage. Results & Data Vital Signs (Past 12 Hours) Vital Signs Temp Pulse Resp BP Pulse Ox O2 Del Method 08/07/24 20:22 36.8 C 63 16 110/65 97 Room Air 08/07/24 15:00 37.1 C 63 18 123/75 97 Room Air Diagnostic Findings MRI of bilateral feet personally interpreted and reviewed. These demonstrate findings consistent with acute osteomyelitis of the distal phalanx of bilateral great toes.
[2024-08-07] MEDS: HEPARIN SOD 5,000 UNIT/0.5 ML VIAL SQ SCH (21:08)
[2024-08-08 08:29] LABS: Basophils # (auto) 0.05 K/uL (0.00-0.20); Basophils % (auto) 1.2 %; Eosinophils # (auto) 0.12 K/uL (0.00-0.50); Eosinophils % (auto) 2.8 %; Hematocrit (blood only) 35.2 % (42.0-52.0); Hemoglobin 12.2 g/dl (14.0-18.0); Immature Granulocytes # (auto) 0.01 K/uL (0.01-0.20); Immature Granulocytes % (auto) 0.2 %; Lymphocytes # (auto) 1.21 K/uL (1.20-3.40); Lymphocytes % (auto) 27.9 %; Mean Corpuscular Hemoglobin 30.9 pg (25.0-34.0); Mean Corpuscular Hgb Conc 34.7 g/dL (32.0-36.0); Mean Corpuscular Volume 89.1 fL (80.0-100.0); Mean Platelet Volume 9.1 fL (9.4-12.4); Monocytes % (auto) 9.2 %; Neutrophils # (auto) 2.55 K/uL (1.40-6.50); Neutrophils % (auto) 58.7 %; Platelet Count 163 K/uL (130-400); RDW Coefficient of Variation 11.5 % (11.5-14.5); RDW Standard Deviation 37.1 fL (36.4-46.3); Red Blood Count 3.95 M/uL (4.70-6.10); White Blood Count 4.34 K/ul (4.8-10.8)
[2024-08-08 08:44] LABS: BUN Creatinine Ratio 22.8 (10-20); Calcium 9.3 mg/dl (8.6-10.3); Creatinine Clr Calc Pharmacy 37.5 ml/min; Potassium 4.7 mmol/L (3.5-5.1)
--- NOTE | 2024-08-08 08:56 | Orthopedic Progress Note ---
Date of Service August 08, 2024 Assessment & Plan (1) DM II (diabetes mellitus, type II), controlled: (2) Cellulitis of toe of right foot: (3) Cellulitis of toe of left foot: (4) Diabetic foot ulcer: Plan This is a 68-year-old gentleman who is an inmate at [facility] who was brought to the hospital for evaluation of his bilateral great toes. On my evaluation, the patient appears well. Vital signs demonstrate that he is afebrile. He does not have an elevated white count. I have ordered an ESR and CRP. Considering the patient's bilateral foot MRIs have demonstrated osteomyelitis in the distal phalanx bilaterally, I believe that the most definitive management f or him would include bilateral great toe partial amputations. I believe the patient would require resection of the distal phalanx bilaterally and partial resection of the proximal phalanx with anastomosis of the flexor and extensor tendons. I believe that given his poor skin bilaterally and especially the eschar on the left great toe, a simple debridement of the soft tissue was would not entirely eradicate the infection, and the surgical wound would be unlikely to heal without resection to a more proximal level. Given this, I think his best chance at avoiding a higher level of amputation would include the partial resection of bilateral great toes described above. I discussed the surgery in great detail with the patient last evening and again this morning. The patient notes that he would like to decline surgical intervention at this time. He does state that his reasoning for declining surgical intervention is to potentially be transferred from the housing unit at [facility] where he currently resides. He states that he is fearful of another inmate in that unit and believes that if he has surgery here and returns to [facility] while he is "incapacitated" he wont be able to defend himself. Myself and the 2 guards at his bedside reassured him that he would recover in the [facility] infirmary until his wounds heal, but this was still not enough reassurance for him. I explained to him that as he has declined to sign consent for the surgery that I recommended to him, my next best medical advice for treatment of his osteomyelitis would be for middle or intermediate school principal antibiotic treatment. I told the patient that I do not believe that this plan of treatment will eradicate his infection, and we are essentially delaying the inevitable, but the patient admitted that that course of events is exactly what he is hoping for. He states he is hopeful for transfer to another [facility] facility to receive antibiotics. I did discuss with him in great detail the risks of delaying surgery. Although the patient's osteomyelitis is confined to his distal phalanx bilaterally in the great toes at this time, I do think there is a very high chance of proximal migration of the infection requiring a higher level of amputation. The patient expressed understanding to this and still wishes to decline surgery at this time. Considering the patient has refused surgical care, I will sign off of his hos pital care at this time. would recommend continued wound care per the wound nurse's instructions and would recommend discussion with ID to formulate an appropriate antibiotic plan moving forward. If the patient remains at [facility], I will see him as an outpatient. If he is transferred to another facility, I do think he should see a foot surgeon at his next location to monitor his osteomyelitis. Admission and Anticipated Discharge Date Admission Date: July 29, 2024 Subjective Patient seen and evaluated this morning. He maintains that he does not feel ill. Denies fevers, chills, chest pain, shortness of breath. Patient notes that he has thought about the surgery that we discussed yesterday and states that he would like to decline. The patient does freely admit that he thinks he will need the surgery in the future, but wants to be sure that he can recover in a different housing unit in the [facility]. He states that he fear another inmate in his unit, and is worried that if he is "incapacitated from the surgery" he will not be able to defend himself, and will have difficulties healing. He has freely admitted that he hopes for a transfer to another [facility]. Review of Systems Review of Systems: All systems reviewed & are unremarkable except as noted in HPI & below Physical Exam Physical Exam: Unchanged from previous. See pictures in chart for bilateral great toe wounds. The left great toe has an eschar on the distal medial tip without active extravasation of blood or purulence. The right great toe is erythematous with some purulence noted at the promixal medial aspect of the distal phalanx. Results & Data Vital Signs (Past 12 Hours) Vital Signs Temp Pulse Resp BP Pulse Ox O2 Del Method 08/08/24 08:10 36.5 C 67 16 116/77 99 Room Air
--- NOTE | 2024-08-08 09:53 | Hospitalist Progress Note ---
Date of Service August 08, 2024 Assessment & Plan (1) Cellulitis of toe of left foot: (2) Cellulitis of toe of right foot: (3) DM II (diabetes mellitus, type II), controlled: (4) Hypertension: (5) Hyperlipidemia: (6) GERD (gastroesophageal reflux disease): Plan Osteomyelitis of bilateral distal phalanx of great toe -X-ray reviewed showing bilateral great toe soft tissue swelling, -Neg MRSA swab, IV Zosyn and daptomycin de-escalated to Cefazolin IV 07/31 -MRI of the bilateral forefoot shows possible osteomyelitis of distal phalanx of right great toe Orthopedic was consulted and patient was discussed regarding surgery; he initially refused to undergo surgery. However, if he change his mind later. Patient to undergo bilateral partial great toe amputation tomorrow. PICC line consent was taken for antibiotics. Will follow-up on IntraOp culture. Plan to treat for 6 weeks of antibiotics as per ID. hold metformin. RONNY on CKD - Creatinine of 2.75 on admission, improved to 2.07 today. - Avoid nephrotoxins and renally reduce medications. Monitor PRP DM type II -A1c: 7.7. Pt reports he is on glipizide, januvia, metformin. -ISS with Accu-Cheks ACHS -Holding home medications -Patient reports that he does not want to take insulin; education provided. HTN/HLD: Pt reports he has been hypotensive on BP meds and his lisinopril has been discontinued. Pt doesn't want statin. Constipation: Cont daily miralax and stool softener. c/w bowel regimen. Urinary Retention: Bladder scan prn, can consider adding flomax for the patient if symptoms continue. DVT ppx: heparin CODE: Full code Dispo: From [facility]; Surgery tomorrow a.m. Will need IntraOp culture to tailor antibiotics. Time spent evaluating patient, direct bedside care, chart review, placing orders, interpretation of diagnostic studies, discussion with consultants, patient, and family members, as well as other required patient management activities is 50 minutes Please note the above document was generated using voice recognition software. It may contain grammatical, syntax or spelling errors. Any formal questions or concerns about the content, text or information contained within the body of this dictation should be directly addressed to the provider for clarification Admission and Anticipated Discharge Date Admission Date: July 29, 2024 Subjective Patient seen and examined at bedside. Patient initially refused surgery. However, later he changed his mind and wants to undergo the surgery. He reports some pain in the toes. Other vitals are stable and he is saturating well on room air. Review of Systems Review of Systems: All systems reviewed & are unremarkable except as noted in Subjective Physical Exam Physical Exam: General- adult male seen at bedside. Comfortable; not in distress. Eyes- PERRL, EOMI, Lungs- clear to auscultation and percussion Heart- regular rhythm; no murmur, no gallop, no rub appreciated Extremities- no pretibial edema, no calf tenderness; peripheral pulses palpable . Black eschar present on left great toe; redness/erythema on right great toe. Tenderness present. Neuro- alert, oriented x 3; PERRL, EOMI; Skin- warm & dry Results & Data Results & Data Vital Signs (Past 12 Hours) Vital Signs Temp Pulse Resp BP Pulse Ox O2 Del Method 08/08/24 08:10 36.5 C 67 16 116/77 99 Room Air
[2024-08-08] MEDS ORDERED: Nursing to Pharmacy Communication SCH (21:15)
--- NOTE | 2024-08-08 21:21 | Orthopedic Progress Note ---
Date of Service August 08, 2024 Assessment & Plan (1) DM II (diabetes mellitus, type II), controlled: (2) Cellulitis of toe of right foot: (3) Cellulitis of toe of left foot: (4) Diabetic foot ulcer: Plan This is a 68-year-old gentleman who is an inmate at [facility] who was brought to the hospital for evaluation of his bilateral great toes. Considering the patient's bilateral foot MRIs have demonstrated osteomyelitis in the distal phalanx bilaterally, I believe that the most definitive management for him would include bilateral great toe partial amputations. I believe the patient would require resection of the distal phalanx bilaterally and partial resection of the proximal phalanx with anastomosis of the flexor and extensor tendons. I believe that given his poor skin bilaterally and especially the eschar on the left great toe, a simple debridement of the soft tissue was would not entirely eradicate the infection, and the surgical wound would be unlikely to heal without resection to a more proximal level. Given this, I think his best chance at avoiding a higher level of amputation would include the partial resection of bilateral great toes described above. I discussed the surgery in great detail with the patient. The patient initially declined surgery, but apparently had a change of heart and would like to proceed. We discussed surgery in great detail. I explained that our plan for surgery would include bilateral great toe partial amputations with anastomosis of the flexor and college football coach tendons. We discussed that amputation is necessary specifically on the left side as the eschar that he has open a small surgery healing. The rest of his right side, his toe demonstrate osteomyelitis, and I believe that his outcome if he were to just agree the distal aspect of the distal phalanx and tender close over will be worse than with a matching partial amputation because of the potential nail deformity. He understands and wished to proceed. We discussed the risks to include but limited to loss of life/limb, and clearly for pain, incomplete eradication of infection, need for additional surgery, continued infection, wound healing occasions, need for higher irritation future. Patient understands wished to proceed. Will plan for this to occur tomorrow pending OR availability. Admission and Anticipated Discharge Date Admission Date: July 29, 2024 Subjective Called to the patient's room as he changes mind about surgery.
[2024-08-08 21:26] VITALS: O2SAT 97
[2024-08-09] MEDS: INSULIN ASPART PER UNIT CHARGE SC SCH ×2 (00:07→08:51)
--- NOTE | 2024-08-09 06:44 | Orthopedic Progress Note ---
Date of Service August 09, 2024 Assessment & Plan (1) Diabetic foot ulcer: (2) DM II (diabetes mellitus, type II), controlled: (3) Cellulitis of toe of right foot: (4) Cellulitis of toe of left foot: Plan Patient is once again reverted to refusing surgery. At this point we have scheduled and canceled his surgical case multiple times. His case today is canceled. Would recommend antibiotics per infectious disease and discharge back to [facility]. Patient informed me multiple times that he understands the weight of his decision. He understands that he risks higher amputation level, sepsis, uncontrollable infection, as he continues to refuse surgery. Admission and Anticipated Discharge Date Admission Date: July 29, 2024 Subjective Patient has once again reverted to refusing surgery. Results & Data Vital Signs (Past 12 Hours) Vital Signs Temp Pulse Resp BP Pulse Ox O2 Del Method 08/08/24 21:26 36.8 C 69 18 119/72 97 Room Air
[2024-08-09 07:05] LABS: Basophils # (auto) 0.04 K/uL (0.00-0.20); Basophils % (auto) 0.8 %; Eosinophils # (auto) 0.16 K/uL (0.00-0.50); Eosinophils % (auto) 3.3 %; Hematocrit (blood only) 35.9 % (42.0-52.0); Hemoglobin 12.4 g/dl (14.0-18.0); Immature Granulocytes # (auto) 0.01 K/uL (0.01-0.20); Immature Granulocytes % (auto) 0.2 %; Lymphocytes # (auto) 1.35 K/uL (1.20-3.40); Lymphocytes % (auto) 28.2 %; Mean Corpuscular Hgb Conc 34.5 g/dL (32.0-36.0); Mean Corpuscular Volume 89.8 fL (80.0-100.0); Mean Platelet Volume 9.1 fL (9.4-12.4); Monocytes # (auto) 0.44 K/uL (0.11-0.59); Monocytes % (auto) 9.2 %; Neutrophils # (auto) 2.78 K/uL (1.40-6.50); Neutrophils % (auto) 58.3 %; Platelet Count 172 K/uL (130-400); RDW Coefficient of Variation 11.6 % (11.5-14.5); RDW Standard Deviation 37.9 fL (36.4-46.3); White Blood Count 4.78 K/ul (4.8-10.8)
[2024-08-09 07:28] LABS: Anion Gap 7 (3-11); BUN Creatinine Ratio 21.7 (10-20); Blood Urea Nitrogen 46 mg/dl (6-23); C Reactive Protein < 0.50 mg/dl (0-0.5); Carbon Dioxide 26 mmol/L (21-32); Chloride 105 mmol/L (98-107); Creatinine Clr Calc Pharmacy 36.5 ml/min; Glucose 163 mg/dl (70-99(Fasting)); Potassium 4.9 mmol/L (3.5-5.1); Sodium 138 mmol/L (136-145)
[2024-08-09] MEDS ORDERED: Nursing to Pharmacy Communication SCH (07:45)
[2024-08-09 08:01] VITALS: BP 143/83; PULSE 63; RESP 16; TEMP 97.7
--- NOTE | 2024-08-09 10:24 | Discharge Summary ---
Date of Service August 09, 2024 Admission HPI Per Admitting Provider This is a 68-year-old male with PMHx of DM type II, HTN, HLD, GERD, depression who presents to the hospital from [facility] as an unassigned admission to our team with complaints of left toe eschar, as well as right toe erythema. Patient states that his toes look normal up until approximately 3 days ago. He had been followed by the [facility] at [facility], started on oral Bactrim and took it for 3 days in a row without any improvement.He denies any fever, reports that he is always chilled, or acute pain in his bilateral great toes. He states that he does have history of neuropathy, that it is in the bottoms of his feet bilaterally. Patient states that he was only recently started on additional antihyperglycemic medication, metformin, about 1 week ago. He was evaluated in the [facility] this morning and reportedly physician there wanted further evaluation for podiatry versus surgical debridement here at the hospital. Patient is found to have an elevated creatinine of 2.75/BUN 48 on admission, WBC is negligible at 5.84, afebrile. Imaging great toe x-ray bilaterally negative for osteomyelitis but does show soft tissue swelling. Admission Exam Per Admitting Provider General: awake, alert, no apparent distress, elderly white male, thin, BMI 21 Head: Normocephalic, atraumatic ENT: PERRL, EOMI, no pharyngeal exudate, mucous membranes moist Chest: Clear to auscultation, on room air, no adventitious breath sounds Cardiac: Regular rate and rhythm, no murmur, no JVD, normal peripheral pulses, good capillary refill Abdominal: NABS x 4 quadrants, soft, nondistended, nontender to palpation, no rebound or guarding Extremities: Left great toe with black eschar medial aspect, minimal surrounding erythema does not extend past the base of the toe, right great toe erythema, edema, no eschar, minimally open area of skin, erythema does not extend past the base of the toe, no edema in the foot. Otherwise normal inspection, no peripheral edema or erythema, calfs nontender to palpation Psych: Normal mood and affect Neuro: AAO x 3, strength intact bilaterally and rated 5/5, no motor deficits, speech is clear, no peripheral sensory deficits Principal Diagnosis Bilateral great toe cellulitis Possible osteomyelitis of distal phalanx of bilateral great toes Discharge Exam General- adult male seen at bedside. Comfortable; not in distress. Eyes- PERRL, EOMI, Lungs- clear to auscultation and percussion Heart- regular rhythm; no murmur, no gallop, no rub appreciated Extremities- no pretibial edema, no calf tenderness; peripheral pulses palpable . Black eschar present on left great toe; redness/erythema on right great toe. Tenderness present. Neuro- alert, oriented x 3; PERRL, EOMI; Skin- warm & dry Discharge Data Allergies Allergy/AdvReac Type Severity Reaction Status Date / Time insulin regular Allergy Unknown Unknown Verified 05/19/23 13:46 Consultations 07/29/24 11:49 ED Decision to Admit Stat 08/01/24 10:47 Consult Orthopedic Surgery Routine 08/02/24 08:39 Consult Infectious Diseases Routine 08/09/24 07:16 Consult Behavioral Health Liaison Routine Procedures Performed Operation Date: 08/09/24 07:15 <No data on this case meets the specified criteria> Ordered Studies 08/06/24 11:33 MRI Foot [MR foot LT w/o con] Routine MRI Foot [MR foot RT w/o con] Routine Hospital Course (1) Cellulitis of toe of left foot: (2) Cellulitis of toe of right foot: (3) DM II (diabetes mellitus, type II), controlled: (4) Hypertension: (5) Hyperlipidemia: (6) GERD (gastroesophageal reflux disease): Plan Osteomyelitis of bilateral distal phalanx of great toe -X-ray reviewed showing bilateral great toe soft tissue swelling, -Neg MRSA swab, IV Zosyn and daptomycin de-escalated to Cefazolin IV 07/31 -MRI of the bilateral forefoot shows possible osteomyelitis of distal phalanx of right great toe Orthopedic was consulted and patient was discussed regarding surgery; he initially refused to undergo surgery. However, if he change his mind later. He was then placed on the schedule again for August 09, 2024 for partial bilateral toe amputation. However, patient refused to undergo surgery again. I discussed the risks of foregoing surgery which can include advancement of the gangrene, severe sepsis, multiorgan failure and . Patient was alert oriented x 3 and he verbalized understanding of the risks involved, refused to undergo surgery. I advised him to follow-up as outpatient with podiatry if he wishes to undergo surgery . He was discharged on IV cefazolin 2 g every 12 hour for 6 weeks for management of osteomyelitis. PICC line was placed. CBC, CMP, ESR and CRP to be obtained every week while on treatment. Wound care instructions were placed. RONNY on CKD Creatinine of 2.75 on admission, baseline unknown Improved to around 2 at time of discharge. Baseline is unknown; recommended to follow-up as outpatient with nephrology. DM type II -A1c: 7.7. Pt reports he is on glipizide, januvia, metformin. -ISS with Accu-Cheks ACHS Glipizide discontinued at the time of discharge due to CKD Please note the above document was generated using voice recognition software. It may contain grammatical, syntax or spelling errors. Any formal questions or concerns about the content, text or information contained within the body of this dictation should be directly addressed to the provider for clarification Total Time Total Time Spent Total Time Spent (In Minutes): 35 Total Time Includes: Examination of the Patient, Discharge Planning, Medication Reconciliation, Communication With Other Providers and Other Discharge Plan Discharge Items [facility] Reason For Visit: BILATERAL TOE CELLULITIS Discharge Diagnosis: Bilateral toe cellulitis Possible Osteomyelitis of bilateral distal phalanx of great toe Activity: Resume your previous activity Non-emergency contact: Primary Care Provider Call non-emergency contact if: you have any medication questions Follow-up/Referrals: Agustin ROLLINS [Primary Care Provider] - Diet: Carb Consistent or DM2 Addtl Attending Provider Instructions: You were admitted to the hospital due to bilateral great toe swelling. You were treated with antibiotic during the hospitalization. You also have possible bone infection for which you were recommended surgery. As per infectious disease, you are recommended to be on cefazolin 2000 mg IV every 12 hours for 6 weeks. End date is September 10, 2024. Obtain CBC, CMP, CRP and ESR every Monday while you are on the treatment. Please remove PICC line after completion of the antibiotic. Daily wound care is needed. Instructions are as below; Clean and dry bilateral toe wounds. Apply aquacel ag,gauze, and conform to toes. d dry bilateral toe wounds. Apply aquacel ag,gauze, and conform to toes. Glipizide has been stopped due to advancing kidney failure. You should obtain outpatient referral for nephrology for management of CKD Pending Studies at Discharge: No Stand-Alone Forms: My Interview, Smoking Cessation Skilled Items Patient informed of condition?: No Discharge Level of Care: Other Communicable Disease: No Discharge Prognosis: Stable Lines: PICC Urinary Catheter: No Medications and DC Order Prescriptions: New cefazolin 2 gram recon soln 2 g IM Q12H 31 Days Qty: 25 0RF Continued atorvastatin 10 mg Tablet 10 mg PO HS lisinopril 2.5 mg Tablet 2.5 mg PO QAM Januvia 100 mg Tablet 100 mg PO QAM metformin 500 mg Tablet 500 mg PO BID polyethylene glycol 3350 [Miralax] 17 gram Powder In Packet 17 g PO DAILY PRN (Reason: Constipation) atorvastatin 10 mg Tablet 10 mg PO HS loratadine 10 mg Tablet 10 mg PO DAILY lactulose 10 gram/15 mL Solution 15 ml PO DAILY PRN (Reason: Constipation) Discontinued glipizide 5 mg Tablet 5 mg PO BID sulfamethoxazole-trimethoprim [Bactrim DS] 800-160 mg Tablet 1 tab PO BID Discharge Orders: Discharge Order (Routine); Ordered 08/09/24 Ordered By: Khris Bolden/Other Patient Handouts: Managing Type 2 Diabetes Admission Data Admit Date/Time: 07/29/24 11:53 Attending Provider: Khris Jasmine Admit Provider: Timothy Larry Primary Care Provider: Agustin ROLLINS Other Providers: Timothy Larry; Peter Jesus; Joo Ojeda; Babak Wilson; Ishmael Ko I.; Ivan Valencia II; Milena Tracy; Pravin Goddard; Marcos Traore; Constanza Meredith Other Interventions: Discharge Summary Assessment (RN) Last Done: 08/09/24 10:48
--- NOTE | 2024-08-09 11:15 | Orthopedic Progress Note ---
Date of Service August 09, 2024 Assessment & Plan (1) Diabetic foot ulcer: (2) Cellulitis of toe of right foot: (3) Cellulitis of toe of left foot: Plan The patient has changed his mind multiple times regards to his wishes for his footcare. When the patient reverted back to wanting surgery again this morning, there was no OR availability, so we cannot complete this today. At this point, I think the patient would benefit from psychiatric evaluation, and potentially an additional foot and ankle surgery consult from a wire preparation machine tender as patient does not seem to agree entirely with my plan. Admission and Anticipated Discharge Date Admission Date: July 29, 2024 Subjective I was called 1 more time this morning to be informed that the patient has changed his mind yet again - and now would like to proceed with surgery. Results & Data Vital Signs (Past 12 Hours) Vital Signs Temp Pulse Resp BP Pulse Ox O2 Del Method 08/09/24 08:00 36.5 C 63 16 143/83 H 97 Room Air
== END 2024-08-09 13:45 | DRG 638 ==
LOC: ED 08:58 → SUATTDRO 11:53 → EDINP 11:53 → 3W 15:48